=== PATIENT | female | born 1995 | race Hispanic/Latino ===

== ENCOUNTER 2018-10-14 18:09 | Emergency (ER) | payer SELFPAY ==
[2018-10-14] MEDS ORDERED: BUPIVACAINE 0.5% PF 10 ML VIAL ONE (19:40)
[2018-10-14] MEDS ORDERED: AMOX/K CLAV 875 MG TAB ONE (19:40)
[2018-10-14] MEDS ORDERED: TETANUS & DIPHTHERIA TOX,ADULT 0.5 ML VIAL ONE (19:41)
--- NOTE | 2018-10-14 19:46 | RAD REPORT ---
EXAM DESCRIPTION: RAD - Humerus Right - 10/14/2018 7:27 pm CLINICAL HISTORY: Right arm pain FINDINGS: No fracture is seen . Soft tissue laceration is noted. A radiopaque foreign body is not s een
--- NOTE | 2018-10-14 21:30 | EDPHYS ---
Physician Documentation [facility] Name: Nazia Ribeiro Age: 23 yrs Sex: Female : 1995 Arrival Date: 10/14/2018 Time: 18:11 Bed 16 Private MD: ED Physician Ruben Greer HPI: 10/14 18:42 This 23 yrs old Female presents to ER via Ambulatory with complaints of Dog jmm Bite. 18:42 by a dog, Onset: The symptoms/episode began/occurred acutely. This is a 23 year old jmm female with no chronic medical conditions that presents to the ED with complaints of right arm pain after a large dog bit her right arm. Patient states as she walked into the dogs home she was attacked. Denies other injury. Denies numbness to the arm. . Historical: - Allergies: 18:21 No Known Allergies; sg - Home Meds: 18:21 None [Active]; sg - PMHx: 18:21 None; sg - PSHx: 18:21 None; sg - Immunization history:: Adult Immunizations up to date, Last tetanus immunization: > 10 years ago. - Social history:: Smoking status: Patient/guardian denies using tobacco. - Ebola Screening: : Patient negative for fever greater than or equal to 101.5 degrees Fahrenheit, and additional compatible Ebola Virus Disease symptoms Patient denies exposure to infectious person Patient denies travel to an Ebola-affected area in the 21 days before illness onset No symptoms or risks identified at this time. ROS: 21:22 Constitutional: Negative for fever, chills, and weight loss, Cardiovascular: Negative jmm for chest pain, palpitations, and edema, Respiratory: Negative for shortness of breath, cough, wheezing, and pleuritic chest pain. 21:22 MS/extremity: Positive for injury or acute deformity, pain. 21:22 All other systems are negative. Exam: 21:22 Constitutional: This is a well developed, well nourished patient who is awake, alert, jmm and in no acute distress. Head/Face: atraumatic. Eyes: EOMI, no conjunctival erythema appreciated ENT: Moist Mucus Membranes Neck: Trachea midline, Supple Chest/axilla: Normal chest wall appearance and motion. Cardiovascular: Regular rate and rhythm. No edema appreciated Respiratory: Normal respirations, no respiratory distress appreciated Abdomen/GI: Non distended, soft 21:22 Musculoskeletal/extremity: FROM appreciated to the right elbow, compartments are soft, NVI. 21:22 Skin: 2 cm laceration noted to the right lateral humeral region, no active bleeding appreciated. 21:22 Neuro: Orientation: is normal, Mentation: is normal, Memory: is normal. 21:22 Psych: Behavior/mood is pleasant, cooperative. Vital Signs: 18:22 BP 136 / 73; Pulse 72; Resp 17; Temp 99.7; Pulse Ox 100% on R/A; Weight 86.18 kg (R); sg Height 5 ft. 6 in. (167.64 cm) (R); Pain 6/10; 19:30 BP 127 / 73; Pulse 75; Resp 17 S; Pulse Ox 100% on R/A; cc3 20:25 BP 128 / 77; Pulse 72; Resp 16 S; Pulse Ox 100% on R/A; cc3 21:35 BP 125 / 83; Pulse 73; Resp 17 S; Pulse Ox 99% on R/A; cc3 18:22 Body Mass Index 30.67 (86.18 kg, 167.64 cm) sg MDM: 18:42 Patient medically screened. [facility] 21:22 Data reviewed: vital signs, nurses notes. Counseling: I had a detailed discussion with hilary the patient and/or guardian regarding: the historical points, exam findings, and any diagnostic results supporting the discharge/admit diagnosis, radiology results, the need for outpatient follow up, to return to the emergency department if symptoms worsen or persist or if there are any questions or concerns that arise at home. ED course: The wound to the right arm was copiously irrigated. I discussed the risk of wound infection due to the depth of the wound along with the need for close follow up for wound care. Patient was given strict return precautions. Patient understood and agrees with the plan fo care. . 10/14 18:48 Order name: Humerus Right XRAY; Complete Time: 20:13 [facility] 10/14 20:45 Order name: Wound Care; Complete Time: 21:23 [facility] Administered Medications: 19:45 Drug: Augmentin 875 mg Route: PO; cc3 21:25 Follow up: Response: No adverse reaction cc3 19:46 Drug: Tetanus-Diphtheria Toxoid Adult 0.5 ml {Ecdis N Navigation Operator: [employer]. Exp: cc3 08/10/2020. Lot #: [id number]. } Route: IM; Site: left deltoid; 21:25 Follow up: Response: No adverse reaction cc3 20:10 Drug: Marcaine (0.5 %) 10 ml {Note: administered by RICK Correa.} Volume: 10 ml; Route: cc3 Infiltration; 21:25 Follow up: Response: No adverse reaction cc3 21:25 Drug: [place] 5 mg-325 mg 1 tabs Route: PO; cc3 22:00 Follow up: Response: No adverse reaction; Pain is decreased cc3 Disposition: : Co-signature as Attending Physician, Ruben Greer MD Available for consultation at [facility] all times . Disposition: 10/14/18 21:29 Discharged to Home. Impression: Dog Bite, Arm Laceration. - Condition is Stable. - Discharge Instructions: Animal Bite. - Prescriptions for Augmentin 875- 125 mg Oral Tablet - take 1 tablet by ORAL route every 12 hours for 10 days; 20 tablet. Ultracet 37.5- 325 mg Oral Tablet - take 1 tablet by ORAL route every 6 hours - for up to 5 days; do not exceed 8 tablets per day.; 12 tablet. - Medication Reconciliation Form, Thank You Letter, Antibiotic Education, Prescription Opioid Use form. - Follow up: Oscar Butler MD; When: 2 - 3 days; Reason: Recheck today's complaints, Continuance of care, Re-evaluation by your physician. Signatures: Dispatcher [employer] EDMS Randy Candelario RN RN sg Mickail, Joel, PA PA jmm Singer, Phillip, MD MD [facility] Pam Cortés cc3 Corrections: (The following items were deleted from the chart) 21:22 18:42 This is a 23 year old female . hilary richard 22:01 21:29 10/14/2018 21:29 Discharged to Home. Impression: Dog Bite; Arm Laceration. cc3 Condition is Stable. Forms are Medication Reconciliation Form, Thank You Letter, Antibiotic Education, Prescription Opioid Use. Follow up: Oscar Butler; When: 2 - 3 days; Reason: Recheck today's complaints, Continuance of care, Re-evaluation by your physician. hilary
--- NOTE | 2018-10-14 21:30 | ER ---
Nurse's Notes [facility] Name: Nazia Ribeiro Age: 23 yrs Sex: Female : 1995 Arrival Date: 10/14/2018 Time: 18:11 Bed 16 Private MD: Diagnosis: Dog Bite;Arm Laceration Presentation: 10/14 18:18 Presenting complaint: Patient states: I was walking into my significant others home, sg when his dog bit me in the right bicep and the right elbow. Transition of care: patient was not received from another setting of care. Onset of symptoms was October 14, 2018. Risk Assessment: Do you want to hurt yourself or someone else? Patient reports no desire to harm self or others. Initial Sepsis Screen: Does the patient meet any 2 criteria? No. Patient's initial sepsis screen is negative. Does the patient have a suspected source of infection? Yes: Skin breakdown/wound. Care prior to arrival: None. 18:18 Method Of Arrival: Ambulatory sg 18:18 Acuity: ELDA 4 sg Triage Assessment: 18:20 Bite description: bite sustained to right arm was sustained 30-60 minutes ago. by a rb1 dog, animal information: vaccination(s) is current. Historical: - Allergies: 18:21 No Known Allergies; sg - Home Meds: 18:21 None [Active]; sg - PMHx: 18:21 None; sg - PSHx: 18:21 None; sg - Immunization history:: Adult Immunizations up to date, Last tetanus immunization: > 10 years ago. - Social history:: Smoking status: Patient/guardian denies using tobacco. - Ebola Screening: : Patient negative for fever greater than or equal to 101.5 degrees Fahrenheit, and additional compatible Ebola Virus Disease symptoms Patient denies exposure to infectious person Patient denies travel to an Ebola-affected area in the 21 days before illness onset No symptoms or risks identified at this time. Screenin:20 Abuse screen: Denies threats or abuse. Nutritional screening: No deficits noted. rb1 Tuberculosis screening: No symptoms or risk factors identified. Fall Risk None identified. Assessment: 18:20 General: Appears in no apparent distress. comfortable, Behavior is calm, cooperative. rb1 Pain: Complains of pain in right arm Pain currently is 3 out of 10 on a pain scale. Quality of pain is described as stinging, Pain began 1730 today. Neuro: Level of Consciousness is awake, alert, obeys commands, Oriented to person, place, time, situation. Cardiovascular: Capillary refill < 3 seconds is brisk in right in bilateral fingers. Respiratory: Airway is patent Respiratory effort is even, unlabored, Respiratory pattern is regular, symmetrical. GI: No signs and/or symptoms were reported involving the gastrointestinal system. : No signs and/or symptoms were reported regarding the genitourinary system. Derm: Skin wound on right upper arm Skin is dry, Skin is pink, warm \T\ dry. Wound noted right upper arm. Musculoskeletal: Range of motion: intact in all extremities. 19:30 Reassessment: Patient appears in no apparent distress at this time. Patient and/or cc3 family updated on plan of care and expected duration. Pain level reassessed. Patient is alert, oriented x 3, equal unlabored respirations, skin warm/dry/pink. Received this female patient from morning shift RN Faith as a case of dog bite. No IV cannula in situ. 20:18 Reassessment: Patient appears in no apparent distress at this time. Patient and/or cc3 family updated on plan of care and expected duration. Pain level reassessed. Patient is alert, oriented x 3, equal unlabored respirations, skin warm/dry/pink. 21:20 Reassessment: Patient appears in no apparent distress at this time. Patient and/or cc3 family updated on plan of care and expected duration. Pain level reassessed. Patient is alert, oriented x 3, equal unlabored respirations, skin warm/dry/pink. 22:00 Reassessment: Patient appears in no apparent distress at this time. Patient and/or cc3 family updated on plan of care and expected duration. Pain level reassessed. Patient is alert, oriented x 3, equal unlabored respirations, skin warm/dry/pink. RICK Aden discharged home the patient with prescription given. No IV cannula in situ. Patient left ER vitally stable and ambulatory with her friend. Patient denies pain at this time. Patient states feeling better. Patient states symptoms have improved. Vital Signs: 18:22 BP 136 / 73; Pulse 72; Resp 17; Temp 99.7; Pulse Ox 100% on R/A; Weight 86.18 kg (R); sg Height 5 ft. 6 in. (167.64 cm) (R); Pain 6/10; 19:30 BP 127 / 73; Pulse 75; Resp 17 S; Pulse Ox 100% on R/A; cc3 20:25 BP 128 / 77; Pulse 72; Resp 16 S; Pulse Ox 100% on R/A; cc3 21:35 BP 125 / 83; Pulse 73; Resp 17 S; Pulse Ox 99% on R/A; cc3 18:22 Body Mass Index 30.67 (86.18 kg, 167.64 cm) ED Course: 18:11 Patient arrived in ED. as 18:17 Faith Brush, RN is Primary Nurse. rb1 18:18 Arm band placed on. sg 18:20 Triage completed. sg 18:20 Patient has correct armband on for positive identification. Bed in low position. Call rb1 light in reach. Side rails up X 1. Pulse ox on. NIBP on. 18:26 Sunny Aden PA is PHCP. [facility] 18:26 Ruben Greer MD is Attending Physician. [facility] 19:00 Report given to DAWN Orozco. rb1 19:27 Humerus Right XRAY In Process Unspecified. EDMS 21:28 Oscar Butler MD is Referral Physician. [facility] 22:00 No provider procedures requiring assistance completed. Patient did not have IV access cc3 during this emergency room visit. Administered Medications: 19:45 Drug: Augmentin 875 mg Route: PO; cc3 21:25 Follow up: Response: No adverse reaction cc3 19:46 Drug: Tetanus-Diphtheria Toxoid Adult 0.5 ml {Rn Unit Manager: [employer]. Exp: cc3 08/10/2020. Lot #: [id number]. } Route: IM; Site: left deltoid; 21:25 Follow up: Response: No adverse reaction cc3 20:10 Drug: Marcaine (0.5 %) 10 ml {Note: administered by RICK Correa.} Volume: 10 ml; Route: cc3 Infiltration; 21:25 Follow up: Response: No adverse reaction cc3 21:25 Drug: [place] 5 mg-325 mg 1 tabs Route: PO; cc3 22:00 Follow up: Response: No adverse reaction; Pain is decreased cc3 Outcome: 21:29 Discharge ordered by . [facility] 22:00 Discharged to home ambulatory, with friend. cc3 22:00 Condition: stable 22:00 Discharge instructions given to patient, friend, Instructed on discharge instructions, follow up and referral plans. medication usage, Demonstrated understanding of instructions, follow-up care, medications, Prescriptions given X 2. 22:01 Patient left the ED. cc3 Signatures: Dispatcher [employer] EDRandy Lugo RN RN sg Mickail, Joel, PA PA jmm Martinez, Amelia as Barber, Rebecca, RN RN Pam Staton cc3
[2018-10-14] MEDS ORDERED: HYDROCODONE/APAP 5/325 MG TAB ONE (21:39)
== END 2018-10-14 22:01 | disposition home or self-care (01) ==
LOC: ER 18:09
DX: S41.151A Open bite of right upper arm, initial encounter (principal); W54.0XXA Bitten by dog, initial encounter; Y92.009 Unspecified place in unspecified non-institutional (private) residence as the place of occurrence of the external cause; Z23 Encounter for immunization
CPT/HCPCS: 90471; 90714; 99284

== ENCOUNTER 2019-02-27 11:34 | Inpatient (IN) | payer BC ==
[2019-02-27] MEDS ORDERED: DIAZEPAM 10 MG/2 ML INJ SYRINGE ONE (12:13)
[2019-02-27] MEDS ORDERED: NA CHLORIDE 0.9% 1,000 ML ONE (12:13)
--- NOTE | 2019-02-27 13:31 | RAD REPORT ---
EXAM DESCRIPTION: RAD - Chest Single View - 02/27/2019 1:25 pm CLINICAL HISTORY: CHEST PAIN Chest pain. COMPARISON: No comparisons FINDINGS: Portable technique limits examination quality. The lungs are grossly clear. The heart is normal in size. No displaced fractures. IMPRESSION: No acute intrathoracic process suspected.
--- NOTE | 2019-02-27 13:37 | RAD REPORT ---
EXAM DESCRIPTION: US - Extrem Venous W Compress Mil - 02/27/2019 12:36 pm CLINICAL HISTORY: SOB Bilateral leg edema and swelling. COMPARISON: No comparisons TECHNIQUE: Real-time sonographic interrogation of the left and right lower extremity deep venous sys tems was performed. FINDINGS: Normal compressibility, flow augmentation, phasic flow and spontaneous flow is identified in both the left and right lower extremity deep venous systems. IMPRESSION: No sonographic evidence of left or right lower extremity deep venous thrombosis.
--- NOTE | 2019-02-27 13:37 | RAD REPORT ---
EXAM DESCRIPTION: US - Abdomen Exam Limited - 02/27/2019 12:36 pm CLINICAL HISTORY: chest pain COMPARISON: No comparisons FINDINGS: The gallbladder demonstrates no gallstones. No pericholecystic fluid or gallbladder wall t hickening. The common bile duct is normal measuring 2 mm. The liver demonstrates no findings of intrahepatic biliary dilatation. IMPRESSION: Unremarkable examination.
[2019-02-27 13:39] LABS: Albumin 2.4 g/dL (3.4-5.0); Bilirubin Direct 0.2 mg/dL (0-0.2); Bilirubin Total 0.7 mg/dL (0.2-1.0); Potassium 4.3 mmol/L (3.5-5.1); Protein, Total 6.5 g/dL (6.4-8.2)
[2019-02-27 13:43] LABS: Urine Bacteria 20-50 /HPF (<20); Urine RBC >50 /HPF (NONE SEEN)
[2019-02-27 13:44] LABS: Absolute Lymphocytes (CBC) 1.2 K/uL (0.7-4.9); Basophils % 0.4 % (0-1.3); Hematocrit 29.5 % (36.0-45.0); Lymphocytes % 37.2 % (15.3-44.8); MPV 10.8 fL (7.6-11.3); RBC Red Blood Cell Count 3.38 M/uL (3.86-4.86)
[2019-02-27 13:44] LABS: Urine Culture Reflex Order REFLEXED
[2019-02-27 13:45] LABS: Urine Mucus SLIGHT /HPF (NONE SEEN); Urine Yeast PRESENT (NONE SEEN)
--- NOTE | 2019-02-27 14:55 | RAD REPORT ---
EXAM DESCRIPTION: CTAbdomen Pelvis W Contrast - 02/27/2019 2:34 pm CLINICAL HISTORY: Abdominal pain. ABD PAIN COMPARISON: Chest For Pe Angio dated 02/27/2019; Abdomen Exam Limited dated 02/27/2019; Extrem Venous W Compress Mil dated 02/27/2019 TECHNIQUE: Biphasic CT imaging of the abdomen and pelvis was performed with 100 ml non-ionic IV cont rast. All CT scans are performed using dose optimization technique as appropriate and may include automated exposure control or mA/KV adjustment according to patient size. FINDINGS: The lung bases are clear. The liver, spleen, pancreas, adrenal glands and kidneys are within normal limits. No bowel obstruction, free air, free fluid or abscess. The appendix is normal. No evidence of signi ficant lymphadenopathy. No suspicious bony findings. Tiny air bubble in the urinary bladder seen. IMPRESSION: Tiny air bubble noted in the urinary bladder. Consider urinalysis correlation for the po ssibility of urinary tract infection.
--- NOTE | 2019-02-27 14:56 | RAD REPORT ---
EXAM DESCRIPTION: CT - Chest For Pe Angio - 02/27/2019 2:35 pm CLINICAL HISTORY: Chest pain. PE COMPARISON: No comparisons TECHNIQUE: CT angiogram of the pulmonary arteries was performed with MIP. All CT scans are performed using dose optimization technique as appropriate and may include automated exposure control or mA/KV adjustment according to patient size. FINDINGS: No evidence of pulmonary thromboembolism. No acute aortic finding demonstrated. Mild dependent pulmonary edema suspected. No focal infiltrate. No significant pericardial or pleural fluid. Mildly prominent axillary lymph nodes bilaterally. No concerning bony finding. IMPRESSION: No evidence of pulmonary thromboembolism.
[2019-02-27] MEDS ORDERED: FENTANYL CITR 100 MCG/2 ML ONE (15:37)
--- NOTE | 2019-02-27 16:07 | ER ---
Nurse's Notes [facility] Name: Nazia Ribeiro Age: 23 yrs Sex: Female : 1995 Arrival Date: 02/27/2019 Time: 11:35 Bed 6 Private MD: Gina Vance C Diagnosis: Nephrotic syndrome;Pancytopenia;Chest pain, unspecified Presentation: 02/27 11:37 Presenting complaint: Mid back pain that wraps around to center of chest and SOB x 2 hb days. Transition of care: patient was not received from another setting of care. Onset of symptoms was February 26, 2019. Risk Assessment: Do you want to hurt yourself or someone else? Patient reports no desire to harm self or others. Initial Sepsis Screen: Does the patient meet any 2 criteria? No. Patient's initial sepsis screen is negative. Does the patient have a suspected source of infection? No. Patient's initial sepsis screen is negative. Care prior to arrival: None. 11:37 Method Of Arrival: Ambulatory hb 11:37 Acuity: ELDA 3 hb WATCH LEADER: 11:38 LMP 02/14/2019 hb Historical: - Allergies: 11:40 No Known Allergies; hb - Home Meds: 11:42 pantoprazole 40 mg oral TbEC 1 tab once daily [Active]; hb - PMHx: 11:40 Gastritis; hb - PSHx: 11:40 None; hb - Immunization history:: Adult Immunizations up to date. - Social history:: Smoking status: Patient/guardian denies using tobacco. - Ebola Screening: : No symptoms or risks identified at this time. Screenin:18 Abuse screen: Denies threats or abuse. Denies injuries from another. Nutritional ph screening: No deficits noted. Tuberculosis screening: No symptoms or risk factors identified. Fall Risk None identified. Assessment: 12:45 General: Appears in no apparent distress. uncomfortable, well groomed, Behavior is ph calm, cooperative, appropriate for age. Pain: Complains of pain in left subscapular area Pain radiates to left lateral posterior chest and left lateral anterior chest Pain began 1 day ago. Neuro: Level of Consciousness is awake, alert, obeys commands, Oriented to person, place, time, situation. Cardiovascular: Reports chest pain, shortness of breath, Capillary refill < 3 seconds in bilateral fingers Patient's skin is warm and dry. Respiratory: Reports shortness of breath at rest Airway is patent Respiratory effort is even, unlabored, Respiratory pattern is regular, symmetrical. GI: No signs and/or symptoms were reported involving the gastrointestinal system. Derm: Skin is intact, Skin is pink, warm \T\ dry. Musculoskeletal: Circulation, motion, and sensation intact. Range of motion: intact in all extremities, Swelling present in right hand and left hand. 14:00 Reassessment: Patient appears in no apparent distress at this time. Patient and/or ph family updated on plan of care and expected duration. Pain level reassessed. Patient is alert, oriented x 3, equal unlabored respirations, skin warm/dry/pink. 15:00 Reassessment: Patient appears in no apparent distress at this time. Patient and/or ph family updated on plan of care and expected duration. Pain level reassessed. Patient is alert, oriented x 3, equal unlabored respirations, skin warm/dry/pink. 16:01 Reassessment: Patient and/or family updated on plan of care and expected duration. Pain iw level reassessed. pt states back pain has improved slightly after pain med, now 6/10, down from 9/10, Nydia, CAR COUPLER notified, verbal order for 2nd dose of fentanyl, given now. US tech at bedside, family at bedside. 17:00 Reassessment: Patient appears in no apparent distress at this time. Patient and/or ph family updated on plan of care and expected duration. Pain level reassessed. Patient is alert, oriented x 3, equal unlabored respirations, skin warm/dry/pink. 18:00 Reassessment: Patient appears in no apparent distress at this time. Patient and/or ph family updated on plan of care and expected duration. Pain level reassessed. Patient is alert, oriented x 3, equal unlabored respirations, skin warm/dry/pink. 19:14 Reassessment: Patient appears in no apparent distress at this time. Patient and/or ph family updated on plan of care and expected duration. Pain level reassessed. Patient is alert, oriented x 3, equal unlabored respirations, skin warm/dry/pink. Vital Signs: 11:38 BP 170 / 123; Pulse 87; Resp 89; Temp 97.3; Pulse Ox 100% on R/A; Weight 86.18 kg; hb Height 5 ft. 5 in. (165.10 cm); Pain 9/10; 13:17 BP 165 / 92; Pulse 92; Resp 18; Pulse Ox 100% on R/A; ph 14:30 BP 186 / 106; Pulse 81; Resp 18; Pulse Ox 98% on R/A; mh5 15:31 BP 194 / 111; Pulse 81; Resp 16; Temp 97.6(TE); Pulse Ox 100% on R/A; mh5 16:00 BP 179 / 122; Pulse 76; Resp 16; Pulse Ox 98% on R/A; Pain 6/10; iw 16:35 BP 212 / 110 RA Sitting (man/); Pulse 74; Resp 18; Pulse Ox 98% on R/A; ph 17:30 BP 165 / 97; Pulse 75; Resp 18; Pulse Ox 99% on R/A; ph 18:21 BP 177 / 119; Pulse 75; Resp 18; Pulse Ox 100% on R/A; ph 19:15 BP 169 / 107; Pulse 80; Resp 20; Pulse Ox 98% on R/A; lp1 19:50 BP 167 / 105; Pulse 86; Resp 16; Temp 98.3(O); Pulse Ox 99% on R/A; lp1 11:38 Body Mass Index 31.62 (86.18 kg, 165.10 cm) hb ED Course: 11:35 Patient arrived in ED. as 11:35 Gina Vance MD is Private Physician. as 11:38 Triage completed. hb 11:38 Arm band placed on. hb 11:43 [facility]C [facility] snw 11:43 Adolfo Main MD is Attending Physician. snw 11:46 Patient has correct armband on for positive identification. Placed in gown. Bed in low mh5 position. Call light in reach. Side rails up X 1. Adult w/ patient. Warm blanket given. nuclear monitoring technician on. Pulse ox on. NIBP on. 11:50 Nereyda Lin, RN is Primary Nurse. ph 12:39 US Extremity Venous W Compression Mil In Process Unspecified. EDMS 12:39 US Abdomen Limited In Process Unspecified. EDMS 13:17 Initial lab(s) drawn, by me, sent to lab. Inserted saline lock: 20 gauge in right ph antecubital area, using aseptic technique. Blood collected. Patient maintains SpO2 saturation greater than 95% on room air. 13:29 Chest Single View In Process Unspecified. EDMS 14:05 Radiology exam delayed due to test not completed at this time. mw3 14:37 CT Chest For PE Angio In Process Unspecified. EDMS 14:42 CT Abd/Pelvis - IV Contrast Only In Process Unspecified. EDMS 15:26 Lab(s) recollected, by me, sent to lab. mh5 15:48 [place] Screen Profile Sent. mh5 15:48 Hepatitis Panel Sent. mh5 15:48 HIV (1 Sent. mh5 15:48 CBC Smear Scan Sent. mh5 16:05 Gina Vance MD is Hospitalizing Provider. snw 16:15 Ultrasound completed. hr 16:16 US Rp Exam Complete In Process Unspecified. EDMS 19:22 No provider procedures requiring assistance completed. Patient admitted, IV remains in lp1 place. Administered Medications: 13:10 Drug: NS 0.9% 1000 ml Route: IV; Rate: 125 ml/hr; Site: right antecubital; ph 19:13 Follow up: Response: No adverse reaction; IV Status: Completed infusion ph 13:15 Drug: Valium 5 mg Route: IVP; Site: right antecubital; ph 19:13 Follow up: Response: No adverse reaction ph 15:44 Drug: fentaNYL (PF) 25 mcg Route: IVP; Site: right antecubital; iw 16:15 Follow up: Response: No adverse reaction; Pain is decreased; RASS: Drowsy (-1) ph 16:00 Drug: fentaNYL (PF) 25 mcg Route: IVP; Site: right antecubital; iw 16:30 Follow up: Response: No adverse reaction; Pain is decreased; RASS: Alert and Calm (0) ph 16:46 Drug: Metoprolol 25 mg Route: PO; ph 19:11 Follow up: Response: No adverse reaction ph 16:46 Drug: Dilaudid 1 mg Route: IVP; Site: right antecubital; ph 17:15 Follow up: Response: No adverse reaction; Pain is decreased; RASS: Drowsy (-1) ph 17:50 Drug: Phenergan 12.5 mg Route: IVP; Site: right antecubital; jl7 19:10 Follow up: Response: No adverse reaction; Nausea is decreased ph 18:16 Drug: amLODIPine 5 mg Route: PO; iw 19:11 Follow up: Response: No adverse reaction ph 18:16 Drug: Benadryl 25 mg Route: PO; iw 19:11 Follow up: Response: No adverse reaction ph Outcome: 16:06 Decision to Hospitalize by Provider. snw 19:23 Condition: stable lp1 19:23 Instructed on the need for admit. 20:00 Admitted to Med/surg via wheelchair, room 207, with chart, Report called to hansel Rollins RN 20:15 Patient left the ED. hansel Signatures: Dispatcher [employer] EDMS Nydia Jordan, NANOSCIENCE TECHNICIAN-C NANOSCIENCE TECHNICIAN-Csnw Rosaura Alfaro Amelia as Williams, Irene, DAWN SEYMOUR Arleen Kenny RN RN lp1 Nereyda Lin RN RN ph Baxter, Heather, RN RN hb Martinez, Maria [facility] Ant Ryan RN RN 7 Vanesa Cotto 3
--- NOTE | 2019-02-27 16:08 | EDPHYS ---
Physician Documentation [facility] Name: Nazia Ribeiro Age: 23 yrs Sex: Female : 1995 Arrival Date: 02/27/2019 Time: 11:35 Bed 6 Private MD: Gina Vance C ED Physician Adolfo Main HPI: 02/27 12:17 This 23 yrs old Female presents to ER via Ambulatory with complaints of Chest snw Pain, Shortness Of Breath. 12:17 The patient has shortness of breath at rest. Onset: The symptoms/episode began/occurred snw suddenly, 2 day(s) ago, and became worse and became persistent. Duration: The symptoms are continuous. The patient's shortness of breath is aggravated by light activity, supine position. Associated signs and symptoms: Pertinent positives: chest pain, swelling. Severity of symptoms: At their worst the symptoms were moderate severe in the emergency department the symptoms are unchanged. The patient has not experienced similar symptoms in the past. pt took 5 hour plane ride for a [employer] Butt lift. She was declined surgery second to anemia, leukopenia. 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 - Social history:: Smoking status: Patient/guardian denies using tobacco. - Ebola Screening: : No symptoms or risks identified at this time. ROS: 12:17 Eyes: Negative for injury, pain, redness, and discharge, ENT: Negative for injury, snw pain, and discharge, Neck: Negative for injury, pain, and swelling. 12:17 Abdomen/GI: Negative for abdominal pain, nausea, vomiting, diarrhea, and constipation, Back: Negative for injury and pain, : Negative for injury, bleeding, discharge, and swelling. 12:17 Skin: Negative for injury, rash, and discoloration, Neuro: Negative for headache, weakness, numbness, tingling, and seizure, Psych: Negative for depression, anxiety, suicide ideation, homicidal ideation, and hallucinations. 12:17 Constitutional: Positive for body aches, fatigue, malaise. 12:17 Cardiovascular: Positive for palpitations. 12:17 Respiratory: Positive for shortness of breath. 12:17 MS/extremity: Positive for swelling. Exam: 12:17 Head/Face: Normocephalic, atraumatic. Eyes: Pupils equal round and reactive to light, snw extra-ocular motions intact. Lids and lashes normal. Conjunctiva and sclera are non-icteric and not injected. Cornea within normal limits. Periorbital areas with no swelling, redness, or edema. ENT: Nares patent. No nasal discharge, no septal abnormalities noted. Tympanic membranes are normal and external auditory canals are clear. Oropharynx with no redness, swelling, or masses, exudates, or evidence of obstruction, uvula midline. Mucous membranes moist. Neck: Trachea midline, no thyromegaly or masses palpated, and no cervical lymphadenopathy. Supple, full range of motion without nuchal rigidity, or vertebral point tenderness. No Meningismus. Chest/axilla: Normal chest wall appearance and motion. Nontender with no deformity. No lesions are appreciated. 12:17 Abdomen/GI: Soft, non-tender, with normal bowel sounds. No distension or tympany. No guarding or rebound. No evidence of tenderness throughout. Back: No spinal tenderness. No costovertebral tenderness. Full range of motion. Skin: Warm, dry with normal turgor. Normal color with no rashes, no lesions, and no evidence of cellulitis. MS/ Extremity: Pulses equal, no cyanosis. Neurovascular intact. Full, normal range of motion. Neuro: Awake and alert, GCS 15, oriented to person, place, time, and situation. Cranial nerves II-XII grossly intact. Motor strength 5/5 in all extremities. Sensory grossly intact. Cerebellar exam normal. Normal gait. 12:17 Constitutional: The patient appears alert, awake, anxious, in obvious distress, uncomfortable. 12:17 Cardiovascular: Rate: tachycardic, Rhythm: regular, Pulses: no pulse deficits are appreciated. 12:17 Respiratory: the patient does not display signs of respiratory distress, Respirations: shallow respirations, splinting, tachypnea, Breath sounds: are clear throughout. 12:17 Psych: Behavior/mood is anxious, Affect is animated. Vital Signs: 11:38 BP 170 / 123; Pulse 87; Resp 89; Temp 97.3; Pulse Ox 100% on R/A; Weight 86.18 kg; hb Height 5 ft. 5 in. (165.10 cm); Pain 9/10; 13:17 BP 165 / 92; Pulse 92; Resp 18; Pulse Ox 100% on R/A; ph 14:30 BP 186 / 106; Pulse 81; Resp 18; Pulse Ox 98% on R/A; mh5 15:31 BP 194 / 111; Pulse 81; Resp 16; Temp 97.6(TE); Pulse Ox 100% on R/A; mh5 16:00 BP 179 / 122; Pulse 76; Resp 16; Pulse Ox 98% on R/A; Pain 6/10; iw 16:35 BP 212 / 110 RA Sitting (man/); Pulse 74; Resp 18; Pulse Ox 98% on R/A; ph 17:30 BP 165 / 97; Pulse 75; Resp 18; Pulse Ox 99% on R/A; ph 18:21 BP 177 / 119; Pulse 75; Resp 18; Pulse Ox 100% on R/A; ph 19:15 BP 169 / 107; Pulse 80; Resp 20; Pulse Ox 98% on R/A; lp1 19:50 BP 167 / 105; Pulse 86; Resp 16; Temp 98.3(O); Pulse Ox 99% on R/A; lp1 11:38 Body Mass Index 31.62 (86.18 kg, 165.10 cm) hb MDM: 11:52 Patient medically screened. [facility] 14:16 Data reviewed: vital signs, nurses notes. Data interpreted: Pulse oximetry: on room air snw is 100 %. Interpretation: normal. Counseling: I had a detailed discussion with the patient and/or guardian regarding: the historical points, exam findings, and any diagnostic results supporting the discharge/admit diagnosis, the presence of at least one elevated blood pressure reading (>120/80) during this emergency department visit, lab results, radiology results. Physician consultation: Gina Vance MD was called at 14:16, was contacted at 14:17, regarding consult, patient's condition, would like further tests performed, monospot. 15:30 Physician consultation: Aly Boykin MD was called at 15:30, was contacted at 15:30, snw regarding renal ultrasound, multiple labs orders. 16:01 Physician consultation: Gina Vance MD was called at 15:42, would like consultation with Dr. kurt Faustin, Cardiology, , would like further tests performed, Echo. 16:03 Physician consultation: Marlyn Jaime MD was called at 16:03, was contacted at w 16:03, regarding consult, message left. 02/27 11:44 Order name: Basic Metabolic Panel; Complete [facility]: 13:45 [facility] 02/27 11:44 Order name: CBC with Diff; Complete Time: 16:35 [facility] 02/27 11:44 Order name: Hepatic Function; Complete Time: 13:45 [facility] 02/27 11:44 Order name: Lipase; Complete Time: 13:45 [facility] 02/27 11:44 Order name: DD; Complete Time: 13:57 [facility] 02/27 11:44 Order name: Urine Microscopic Only; Complete Time: 13:57 [facility] 02/27 11:57 Order name: TSH; Complete Time: 13:57 [facility] 02/27 11:57 Order name: TS; Complete Time: 14:44 [facility] 02/27 11:57 Order name: Urine For Protein, Random; Complete Time: 13:45 [facility] 02/27 13:23 Order name: Urine Dipstick--Ancillary (enter results) 02/27 13:53 Order name: Urine Culture [facility] 02/27 14:07 Order name: CBC Smear Scan; Complete Time: 16:35 [facility] 02/27 14:14 Order name: Test, Urine; Complete Time: 14:17 [facility] 02/27 14:16 Order name: [place] Screen Profile; Complete Time: 16:[facility] 02/27 14:33 Order name: Hepatitis Panel [facility] 02/27 14:34 Order name: HIV (1; Complete Time: 16:37 [facility] 02/27 15:48 Order name: ABO/RH no charge; Complete Time: 15:52 [facility] 02/27 15:52 Order name: SHARON IFA Screen w/Reflex [facility] 02/27 15:52 Order name: Anti-Double Strand DNA Antibod [facility] 02/27 15:52 Order name: Complement C3 [facility] 02/27 15:52 Order name: Complement C4 [facility] 02/27 15:55 Order name: Hepatitis B Surface Antibody [facility] 02/27 15:55 Order name: Hep B Core Ab, Tot/reflex IgM [facility] 02/27 15:55 Order name: Miscellaneous Test Lab [facility] 02/27 17:08 Order name: Basic Metabolic Panel [facility] 02/27 17:08 Order name: Basic Metabolic Panel [facility] 02/27 17:08 Order name: CBC with Automated Diff [facility] 02/27 17:08 Order name: CBC with Automated Diff [facility] 02/27 17:09 Order name: NT PRO-BNP [facility] 02/27 11:44 Order name: IV Saline Lock; Complete Time: 13:20 snw 02/27 11:44 Order name: Labs collected and sent; Complete Time: 13:20 snw 02/27 11:44 Order name: Urine Test (obtain specimen); Complete Time: 12:06 snw 02/27 11:44 Order name: Urine Dipstick-Ancillary (obtain specimen); Complete Time: 12:06 snw 02/27 11:57 Order name: US Extremity Venous W Compression Mil; Complete Time: 13:45 snw 02/27 11:57 Order name: US Abdomen Limited; Complete Time: 13:45 snw 02/27 12:51 Order name: Recheck Vital Signs; Complete Time: 13:20 snw 02/27 13:29 Order name: Chest Single View; Complete Time: 13:45 [facility] 02/27 13:59 Order name: CT Chest For PE Angio; Complete Time: 15:05 snw 02/27 13:59 Order name: CT Abd/Pelvis - IV Contrast Only; Complete Time: 15:05 snw 02/27 13:59 Order name: Labs - recollect needed; Complete Time: 15:37 bd 02/27 15:41 Order name: US Rp Exam Complete; Complete Time: 17:11 snw 02/27 15:56 Order name: Echo with Doppler [facility] 02/27 16:04 Order name: Misc. Order: Manual bp prior to metoprolol; Complete Time: 16:39 snw 02/27 17:08 Order name: CONS Physician Consult [facility] 02/27 17:09 Order name: NT PRO-BNP [facility] 02/27 17:09 Order name: Troponin I [facility] 02/27 17:09 Order name: Troponin I [facility] 02/27 17:09 Order name: Troponin I [facility] Administered Medications: 13:10 Drug: NS 0.9% 1000 ml Route: IV; Rate: 125 ml/hr; Site: right antecubital; ph 19:13 Follow up: Response: No adverse reaction; IV Status: Completed infusion ph 13:15 Drug: Valium 5 mg Route: IVP; Site: right antecubital; ph 19:13 Follow up: Response: No adverse reaction ph 15:44 Drug: fentaNYL (PF) 25 mcg Route: IVP; Site: right antecubital; iw 16:15 Follow up: Response: No adverse reaction; Pain is decreased; RASS: Drowsy (-1) ph 16:00 Drug: fentaNYL (PF) 25 mcg Route: IVP; Site: right antecubital; iw 16:30 Follow up: Response: No adverse reaction; Pain is decreased; RASS: Alert and Calm (0) ph 16:46 Drug: Metoprolol 25 mg Route: PO; ph 19:11 Follow up: Response: No adverse reaction ph 16:46 Drug: Dilaudid 1 mg Route: IVP; Site: right antecubital; ph 17:15 Follow up: Response: No adverse reaction; Pain is decreased; RASS: Drowsy (-1) ph 17:50 Drug: Phenergan 12.5 mg Route: IVP; Site: right antecubital; jl7 19:10 Follow up: Response: No adverse reaction; Nausea is decreased ph 18:16 Drug: amLODIPine 5 mg Route: PO; iw 19:11 Follow up: Response: No adverse reaction ph 18:16 Drug: Benadryl 25 mg Route: PO; iw 19:11 Follow up: Response: No adverse reaction ph Disposition: 02/28 06:36 Co-signature as Attending Physician, Adolfo Main MD I agree with the assessment and priyanka plan of care. Disposition: 02/27/19 16:06 Hospitalization ordered by Gina Vance for Inpatient Admission. Preliminary diagnosis are Nephrotic syndrome, Pancytopenia, Chest pain, unspecified. - Bed requested for Telemetry/MedSurg (Inpatient). - Status is Inpatient Admission. lp1 - Condition is Fair. - Problem is new. - Symptoms have worsened. UTI on Admission? No Signatures: Dispatcher [employer] EDMS Radha Rivas Corey, MD MD cha Therrien, Shelly, HEATING REPAIR TECHNICIAN-C HEATING REPAIR TECHNICIAN-Csnw Jessica Pool, RN RN Arleen Kenny, RN RN lp1 Nereyda Lin, RN RN Larissa Braxton, RN RN Ant Ryan, RN RN jl7 Corrections: (The following items were deleted from the chart) 02/27 13:28 11:46 Chest Pa And Lat (2 Views)+[email or web address] ordered. [facility] 15:55 15:52 Hepatitis B Core IgM Antibody ordered. [facility] 18:24 16:06 Hospitalization Ordered by A Rajiv RILEY for Inpatient Admission. Preliminary bd diagnosis is Nephrotic syndrome; Pancytopenia; Chest pain, unspecified. Bed requested for Telemetry/MedSurg (Inpatient). Status is Inpatient Admission. Condition is Fair. Problem is new. Symptoms have worsened. UTI on Admission? No. snw 20:15 18:24 02/27/2019 16:06 Hospitalization Ordered by A Rajiv RILEY for Inpatient Admission. lp1 Preliminary diagnosis is Nephrotic syndrome; Pancytopenia; Chest pain, unspecified. Bed requested for Telemetry/MedSurg (Inpatient). Status is Inpatient Admission. Condition is Fair. Problem is new. Symptoms have worsened. UTI on Admission? No. bd
[2019-02-27 16:29] LABS: Platelet Estimate DECR
[2019-02-27 16:30] LABS: Blood Morphology Comment NOT SEEN (NOT SEEN); Urine White Blood Cell Casts OK
[2019-02-27] MEDS ORDERED: HYDROMORPHONE HCL 1 MG/ML INJ ONE (16:39)
[2019-02-27] MEDS ORDERED: METOPROLOL TAR 25 MG TAB ONE (16:39)
--- NOTE | 2019-02-27 16:39 | RAD REPORT ---
EXAM DESCRIPTION: US - Renal Ultrasound-Complete - 02/27/2019 4:17 pm CLINICAL HISTORY: .nephrotic syndrome COMPARISON: None. FINDINGS: The right kidney measures 12 cm with a normal echotexture. The left kidney measures 11 cm with a normal echotexture. Hydronephrosis is not seen. No gross abnormality of the bladder IMPRESSION: Unremarkable renal ultrasound.
[2019-02-27] MEDS ORDERED: MORPHINE 4 MG/ML SYR IV PRN (17:02)
[2019-02-27] MEDS ORDERED: PROMETHAZINE 25 MG/ML VIAL ONE (17:52)
[2019-02-27] MEDS ORDERED: METOPROLOL TAR 25 MG TAB PO SCH (18:00)
[2019-02-27] MEDS ORDERED: AMLODIPINE 5 MG TAB ONE (18:13)
[2019-02-27] MEDS ORDERED: DIPHENHYDRAMINE 25 MG TAB/CAP ONE (18:13)
[2019-02-27 20:38] LABS: Urine Blood 3+ (NEG); Urine Glucose NEGATIVE (NEG); Urine Protein 3+ (NEG); Urine pH 6.5 (5.0-7.0)
[2019-02-27 20:40] VITALS: BMI 31.8
[2019-02-27] MEDS: METOPROLOL TAR 25 MG TAB PO SCH (21:14)
[2019-02-27] MEDS: NA CHLORIDE 0.9% 1,000 ML IV SCH (21:15)
[2019-02-27] MEDS ORDERED: AMLODIPINE 5 MG TAB PO ONE (22:13)
[2019-02-28 02:46] LABS: Rheumatoid Factor POS (NEG)
[2019-02-28 02:47] LABS: Rheumatoid Factor Titer 1:4 (32 RF IU/mL)
--- NOTE | 2019-02-28 04:42 | HP ---
Date of Admission: 02/27/2019 Chief Complaint: Chest pain and shortness of breath. History Of Present Illness: This is a 23-year-old female patient who just started to see me recently last month and at that time going to have " [place] butt lift" surgery in [facility]. At that time, she informed me that she was having some chest tightness and shortness of breath and palpi tation type of feeling. When I evaluated at office, I informed her that she should not undergo any s urgery until we get further workup done including cardiac workup and she did not agree with that [place] mmendation, so she did go to [facility]. She went to see the physician who did some preop bl ood work and her CBC showed abnormality in low white count, low hemoglobin, low platelets and physici an advised her not to do surgery, so she did not have any cosmetic surgery. After staying there for few days, she came back and she came to see me last week, and at that time, we talked about all her c omplaints and we started referral process to see director field services and got some outpatient lab work done, and patient actually was going to see me today at office for followup and to discuss lab results and further plan of treatment. Her blood work has shown pancytopenia and some proteinuria. Meanwhile, s he ends up coming to emergency room today instead of coming to office, as she was having lot more neeta st pain last night, describing her pain as in the center of her chest between the anterior and director digital sales ior chest wall. It is intermittent. No aggravating or relieving factor. No precipitating factor. She has some leg swelling, some shortness of breath. Denies any fever or chills. After she was eval uated in the emergency room, multiple testing done and the patient was admitted to the hospital with Nephrology and Hematology consult. I saw her in the emergency room. Her blood pressure has been ext remely elevated in the ER. She received 1 dose of morphine for pain and 1 dose of metoprolol 25 mg. Metoprolol was given to her about an hour and a half before I arrived to see her in the ER and her b lood pressure was still elevated when I saw her around 180 to 190 systolic, 115 diastolic with heart rate around 80, so amlodipine 5 mg p.o. x1 dose was ordered to be given in emergency room after I saw her. I also ordered Benadryl 25 mg p.o. to help her with itching which is likely due to morphine. I have discontinued her morphine. Allergies: NO KNOWN ALLERGIES. Medications: She takes pantoprazole 40 mg p.o. daily. Review of Systems: Cardiovascular: As mentioned above. Respiratory: As mentioned above. Dermatology: As mentioned above. All other systems reviewed and negative. Past Medical History: Significant for gastroesophageal reflux disease. Past Surgical History: Negative. Family History: Father has heart disease. Mother, diabetes. Social History: Negative for smoking and alcohol use. Physical Examination: Vital Signs: When she first came into emergency room, blood pressure 170/123, pulse 87, respiratory rate 18, oxygen saturation 100%, temperature 97.3. Height 5 feet 10 inches, weight 190 pounds. General: Awake, alert, oriented, not in distress. HEENT: Head atraumatic, normocephalic. Conjunctivae nonerythematous. Sclerae white. Mouth, no thru sh or edema noted. Ears/Nose, no mass, lesion, discharge noted. Neck: Supple. No JVD, lymph nodes, bruit, thyromegaly noted. Lungs: Bilateral good equal air entry. Clear to auscultation. No rhonchi. No rales. Heart: Normal heart sounds, no murmur or gallop. Abdomen: Soft, bowel sounds normal. No guarding, rigidity, tenderness, mass, hepatosplenomegaly, di stention, or bruit noted. Extremities: Trace leg edema. Skin: No rash, ulcer, cellulitis. Lymphatics: No lymph node enlargement in neck, supraclavicular, infraclavicular region. Neuro: No focal neurological deficit. Chest: Unremarkable. External Genitalia: Deferred. Rectal: Deferred. Laboratory Data: White count 3.3, hemoglobin 10.7, platelets 80. Sodium 143, potassium 4.3, chlorid e 114, bicarb 20, BUN 22, creatinine 1.15, glucose 89. Liver function test unremarkable. TSH 3.3. Troponin, result pending. D-dimer 6661. Urinalysis, urine protein 1635, urine wbc 10 to 20, and myriam teria 20 to 50, rbc more than 50. HIV negative. [place] screen negative. Right upper quadrant abdomin al ultrasound unremarkable. Renal ultrasound unremarkable. Chest x-ray, no acute intrathoracic benitez ges. CAT scan of the chest per PE protocol, no evidence of pulmonary embolism. Venous Doppler of le g, no evidence of DVT. CAT scan of abdomen, no acute intraabdominal finding. Has tiny air bubble no jessica in the urinary bladder. Impression: 1.Acute glomerulonephritis. 2.Proteinuria secondary to above. 3.Pancytopenia. 4.Hypertension. 5.Gastroesophageal reflux disease. Plan: Admit patient to hospital for further evaluation and management of this problem. Patient is a ppropriate for inpatient and is expected to spend 2 midnights in hospital. She received 1 dose of me toprolol. Blood pressure is still elevated and I have ordered 1 dose of amlodipine [address] art metoprolol 25 mg b.i.d. starting this evening. Consult Cardiology. Echo with Doppler was tyrone d. We will also consult Nephrology and Hematology service. We need to rule out any possibility of v iral myocarditis, lupus, etc. Details and plan of treatment discussed with the patient. I will see her tomorrow for followup. COCO/MODL Voice ID: [id number]
[2019-02-28 05:54] LABS: Absolute Lymphocytes (CBC) 0.9 K/uL (0.7-4.9); Basophils % 0.3 % (0-1.3); Hematocrit 24.8 % (36.0-45.0); Lymphocytes % 24.9 % (15.3-44.8); MPV 10.7 fL (7.6-11.3); RBC Red Blood Cell Count 2.86 M/uL (3.86-4.86)
[2019-02-28] MEDS: HYDROCODONE/APAP 5/325 MG TAB PO PRN ×4 (05:54→20:51)
[2019-02-28 06:16] LABS: Potassium 4.1 mmol/L (3.5-5.1)
[2019-02-28] MEDS: NA CHLORIDE 0.9% 1,000 ML IV SCH ×3 (07:20→20:40)
[2019-02-28] MEDS: METOPROLOL TAR 25 MG TAB PO SCH ×2 (08:54→20:51)
[2019-02-28] MEDS ORDERED: PANTOPRAZOLE 40 MG INJ IVP ONE (11:55)
[2019-02-28] MEDS ORDERED: SODIUM CHLORIDE 0.9% 10ML INJ IV PRN (11:55)
[2019-02-28] MEDS: ONDANSETRON 4 MG/2 ML VIAL IV PRN ×2 (12:31→20:54)
--- NOTE | 2019-02-28 22:51 | PN ---
Date of Progress Note: 02/28/2019 Subjective: Patient was seen this morning for followup. She was lying in bed, not in distress still complaining of nausea and chest pain. No new complaints overnight reported. Objective: Vital Signs: Reviewed. HEENT: Examination unremarkable. Lungs: Clear to auscultation. No rhonchi, no rales. Heart: Sounds normal. Abdomen: Soft. Bowel sounds normal. No guarding, rigidity, tenderness, or distention. Extremities: No leg edema. Laboratory Data: Wound white count 3.5, hemoglobin 9.1, platelets 75. Sodium 142, potassium 4.1, ch loride 114, bicarb 21, BUN 22, creatinine 1.05, glucose 109. Echocardiogram done today, results discussed with ripshear operator, and echocardiogram was normal. Impression: 1.Nephrotic syndrome. 2.Acute nephritis. 3.Rule out systemic lupus erythematosus. 4.Chest pain. 5.Gastroesophageal reflux disease. 6.Pancytopenia. Plan: I did discuss details with her sequins stringer, Dr. Faustin and she has discussed details with her n ephrologist. She has given her clearance for kidney biopsy that the gravity flow irrigator is planning to do t omorrow as long as patient's platelet count is more than 50,000, her risk from such procedure should be acceptable as per my discussion with the sequins stringer, so gravity flow irrigator is planning to do this kidn ey biopsy tomorrow. Our working diagnosis is to rule out lupus, appropriate testing has been ordered . Rheumatoid factor test came back positive. HIV test is negative. There is no evidence of any car diomyopathy. Ejection fraction is normal. We will continue pain medication IV Protonix and IV Zofra n was ordered. Ambulation was encouraged. She was advised to move her legs while she is sitting or lying down to reduce chances of any blood clot and I will see her tomorrow. Depending on her conditi on, we will decide whether we can discharge her tomorrow or day after tomorrow. Upon discharge, kita ent will follow up with my office as well as sequins stringer in 2 weeks, and gravity flow irrigator per his recomm endation. Patient will also need to have follow up with protective officer, which we will schedule that on outpatient basis as we do not have any protective officer to provide inpatient consultation. COCO/MODL Voice ID: [id number] Report ID: [id number]
[2019-02-28 23:28] LABS: Urine Protein/Creatinine Ratio 5.61 ratio (<0.15)
[2019-03-01] MEDS: ONDANSETRON 4 MG/2 ML VIAL IV PRN ×4 (00:37→21:47)
[2019-03-01] MEDS: HYDROCODONE/APAP 5/325 MG TAB PO PRN (00:37)
--- NOTE | 2019-03-01 02:40 | CON ---
Date of Consultation: 02/28/2019 Reason For Consultation: Elevated proteinuria, anasarca. History Of Present Illness: This is a pleasant 23-year-old female without any significant past medic al history, except H pylori back in December. Patient apparently went to do a surgery in the [facility]; and there, on the workup, was found to have leukopenia. For that reason, the surgery has be en postponed. Patient started complaining of increased leg swelling with chest tightness and sharp c hest pain with any deep breath. For that reason, the patient came to the hospital and advised for fu rther workup. Primary workup in the hospital showed pancytopenia with anemia. Patient, according to her, was also found to have foamy urine and significant proteinuria. According to the patient, kita taylor is taking Aleve around 400-600 every other day for the last few months. Again, the only exposure to any medication was in December for the antibiotic for H pylori and PPI. Patient denied any IV contra st. No other symptoms. Patient denied any hematuria. No rash. Denied any photosensitivity. Shashank nt complaining of joint pain without any morning stiffness. No mouth or vaginal ulcer. Reviewing the record for the patient back in December, there was marginal thrombocytopenia with the plate lets of 146, without any significant anemia. Her white count was 4.1. At that time, she had urinalysis with +2 blood with only trace proteinuria. Past Medical History: Includes H pylori. Allergies: NO KNOWN DRUG ALLERGIES. Home Medications: Pantoprazole and Aleve. Surgical History: Negative. Review of Systems: Head and Neck: No red eye. No ear pain. No hair loss. GI: Has epigastric pain. : Has foamy urine. STAPLE CUTTER: No vaginal discharge. No ulcer. Cardiovascular: Pleuritic chest pain, shortness of breath. Neuro: No neuropathy. Musculoskeletal: Multiple joint pain without any swelling, pleuritic pain. Endocrine: No polydipsia. Skin: No rash. No photosensitivity. Physical Examination: Vital Signs: When I saw the patient, blood pressure of 159/93, pulse of 86, afebrile. Patient had g ood urine output. Chest: Clear to auscultation. Could not appreciate any pleuritic rubs. Heart: S1, S2. Again, could not appreciate any pericardial rubs. No tachycardia. Abdomen: Soft, nontender. Extremities: Plus edema. Neurologic: Alert and oriented x3, no focal. Laboratory Data: Lab data back in December: Urinalysis; +2 blood, trace protein. RBC less than 5, WBC 4.1, H and H 13.4/40.7, platelets 146. Sodium 143, potassium 4.3, bicarb 24, BUN 10, creatinine 0.5, calcium 8.1. LFT within normal limit. On this admission, sodium 143, potassium 4.3, bicarb 20, BUN of 21, creatinine 1.1, GFR of 60, calcium 7.8. TSH 3.3. Urinalysis; +3 protein. Random protein 16 35, do not have protein-creatinine ratio. Serology still pending. Current Medications: In this hospitalization include: 1.Tylenol. 2.Zofran. 3.Pantoprazole. Renal ultrasound showing normal size kidney, 05/23; no hydronephrosis. Assessment And Plan: 1.Proteinuria, mostly nephrotic range of proteinuria with pleurisy and leukopenia, with thrombocytop enia and lymphopenia. Mostly, patient has lupus nephritis/lupus. I am going to go ahead and proceed with kidney biopsy. I had long discussion with the patient in presence of her family of risks, bene fits, and alternatives. Patient agreed on the kidney biopsy. We will go ahead and proceed with the kidney biopsy. Next, I am going to go ahead and send for full serology and we will send for protein, creatinine to quantify the proteinuria. Next, continue pain medication to control the pain. Whenev er we have the kidney biopsy, we will go ahead and start the patient empirically on prednisone to con trol her possible flare if okay with the primary. 2.Hypertension, stable. We will continue to monitor the patient. We will consider MITCH inhibitor af ter the biopsy and for the time being, given the pain, I am going to start the patient on low dose of beta-bentley and we will follow up the patient. 3.Proteinuria, mostly secondary to SLE nephritis as above. Thank you, Dr. Vance, for allowing us to participate in the care of your patient. KHADIJAH/ANTONIETTA Voice ID: [id number] Report ID: [id number]
[2019-03-01] MEDS: NA CHLORIDE 0.9% 1,000 ML IV SCH ×2 (05:08→10:00)
[2019-03-01 05:59] LABS: MPV 10.5 fL (7.6-11.3)
[2019-03-01 06:25] LABS: Albumin 2.1 g/dL (3.4-5.0); Phosphorus 3.2 mg/dL (2.5-4.9); Potassium 4.4 mmol/L (3.5-5.1)
[2019-03-01 06:26] LABS: Thyroid Stimulating Hormone 6.23 uIU/mL (0.360-3.740)
[2019-03-01 07:51] LABS: Platelet Estimate DECR
[2019-03-01 08:14] LABS: Protime INR 1.02
--- NOTE | 2019-03-01 08:22 | ECHO ---
HEIGHT: 5 ft 5 in WEIGHT: 199 lb 0 oz DATE OF STUDY: 02/28/[address]: Adolfo Main MD 2-DIMENSIONAL: YES M.MODE: YES DOPPLER: YES COLOR FLOW: YES TDS: NO PORTABLE: NO DEFINITY: NO BUBBLE STUDY: NO DIAGNOSIS: CHEST PAIN CARDIAC HISTORY: CATHERIZATION: NO SURGERY: NO PROSTHETIC VALVE: NO PACEMAKER: NO MEASUREMENTS (cm) DIASTOLIC (NORMALS) SYSTOLIC (NORMALS) IVSd 0.9 (0.6-1.2) LA Diam 2.8 (1.9-4.0) LVEF 69% LVIDd 4.6 (3.5-5.7) LVIDs 2.9 (2.0-3.5) %FS 38% LVPWd 1.2 (0.6-1.2) Ao Diam 2.6 (2.0-3.7) 2 DIMENSIONAL ASSESSMENT: RIGHT ATRIUM: NORMAL LEFT ATRIUM: NORMAL RIGHT VENTRICLE: NORMAL LEFT VENTRICLE: NORMAL TRICUSPID VALVE: NORMAL MITRAL VALVE: NORMAL PULMONIC VALVE: NORMAL AORTIC VALVE: NORMAL PERICARDIAL EFFUSION: NONE AORTIC ROOT: NORMAL LEFT VENTRICULAR WALL MOTION: NORMAL DOPPLER/COLOR FLOW: NORMAL COMMENTS: NORMAL 2D ECHOCARDIOGRAM WITH DOPPLER. NO EFFUSION. NO WALL MOTION ABNORMALITY. TECHNOLOGIST: Lulu PIMENTEL
[2019-03-01] MEDS: METOPROLOL TAR 25 MG TAB PO SCH ×2 (08:51→21:47)
[2019-03-01] MEDS ORDERED: PANTOPRAZOLE 40 MG INJ IVP SCH (09:00)
--- NOTE | 2019-03-01 10:13 | CON ---
Date of Consultation: 02/28/[address] Vance's service on 02/27/2019, I saw the patient on 02/28/2019. Reason For Consultation: Necrotic syndrome and chest pain. History Of Present Illness: The patient is a 23-year-old black [place] woman, who has been seeing Russ Vance only recently. She was having some chest pain and Dr. Vance had recommended a cardiac workup on her prior to a plastic surgery procedure that she had planned to do in the [place]. Linda ramos had gone to the [facility] and after her blood work her surgery was canceled. Continued to have chest pain, was admitted through the emergency room for further cardiac work and hematological workup. The patient admitting diagnosis is acute glomerulonephritis with proteinuria, pancytopenia, hypertension, and gastroesophageal reflux disease. Allergies: NONE. Review of Systems: Negative. Social History: Negative. Family History: Noncontributory. Medications: At home include Protonix. Physical Examination: Vital Signs: Her initial blood pressure was 177/119. She was in sinus rhythm. HEENT: Negative. Neck: Supple with no bruit, lymphadenopathy, JVD, or thyromegaly. Chest: Clear to auscultation and percussion. Cardiac: Revealed a regular rhythm and rate. No murmurs, gallops, or rubs. Abdomen: Benign. Extremities: Revealed no clubbing or cyanosis. She had 1+ edema. Skin: Her skin was dry and intact. Neurological: She was nonfocal. Diagnostic Data: Her D-dimer was 6661. Her BNP was 1704. Creatinine is 1.15. Platelet count was 8 8,000. White count was 3300, hemoglobin was 10.7. Renal ultrasound was normal. Abdominal ultrasoun d looked normal. Venous Doppler was normal. CT of her abdomen showed possible UTI. CT angiogram of the chest was negative. Impression And Plan: Working diagnosis, acute glomerulonephritis with proteinuria, pancytopenia, hyp ertension, gastroesophageal reflux disease, and chest pain. Her chest pain is very atypical, that is constant and has been going on for 3 days and midepigastric, not related to exertion, food, time of the day, or body position. Echocardiogram is pending. The patient was getting nephrologic workup, r heumatologic workup, and hematologic workup. I will see what her echo shows and I will discuss the c ase further with Dr. Vance. MIGUEL/ANTONIETTA Voice ID: [id number] Report ID: [id number]
[2019-03-01] MEDS ORDERED: cloNIDine HCl 0.1 MG TAB ONE (11:00)
--- NOTE | 2019-03-01 13:08 | RAD REPORT ---
EXAM DESCRIPTION: CT - Renal Biopsy CT - 03/01/2019 12:15 pm CLINICAL HISTORY: RENAL BX Nephrotic syndrome COMPARISON: No comparisons FINDINGS: Preoperative diagnosis: Nephrotic syndrome Post operative diagnosis: Same Conscious Sedation: 45 minutes IV conscious sedation was administered utilizing midazolam and fentany l. Patient was continuously monitored by nursing staff. Contrast used: NONE Estimated blood loss: less than 5 mL Specimens: 3 x18 gauge core specimens The patient was placed prone on the table and the left posterior flank area was prepped and draped in the usual sterile fashion. 1% lidocaine was infiltrated into the subcutaneous tissues for local anes thesia. Under computed tomographic guidance, a 17 gauge introducer was advanced into the inferior susy e left kidney. Subsequently, a 18 gauge, 20 mm throw core biopsy gun was advanced into the lesion and 3 cores were obtained. Postprocedure imaging demonstrated no complications. Samples were given to pathology for analysis. Th e patient tolerated the procedure without immediate complication and transferred to the recovery room in stable condition. IMPRESSION: Successful CT-guided nonfocal left renal biopsy. 45 minutes of IV conscious sedation was utilized. All CT scans are performed using dose optimization technique as appropriate and may include automated exposure control or mA/KV adjustment according to patient size.
[2019-03-01 13:41] LABS: RBC Red Blood Cell Count 2.53 M/uL (3.86-4.86)
[2019-03-01 14:03] LABS: Absolute Lymphocytes (CBC) 0.7 K/uL (0.7-4.9); Basophils % 0.5 % (0-1.3); Hematocrit 22.3 % (36.0-45.0); MPV 11.2 fL (7.6-11.3); RBC Red Blood Cell Count 2.56 M/uL (3.86-4.86)
[2019-03-01 14:24] LABS: Blood Morphology Comment NOT SEEN (NOT SEEN); Platelet Estimate DECR; Urine White Blood Cell Casts OK
[2019-03-01 14:25] LABS: C-Reactive Protein 22.4 mg/L (<3.00); Ferritin 341.6 ng/mL (8-388); Folic Acid, (Folate) 15.5 ng/mL (3.1-17.5)
[2019-03-01 14:44] LABS: Potassium 4.5 mmol/L (3.5-5.1)
[2019-03-01 15:53] LABS: Bilirubin Direct 0.1 mg/dL (0-0.2); Bilirubin Total 0.4 mg/dL (0.2-1.0)
[2019-03-01] MEDS ORDERED: predniSONE 20 MG TAB PO ONE (16:00)
--- NOTE | 2019-03-01 19:58 | CON ---
Additional Consulting Physician: Kyler Vance MD. Reason For Consultation: Pancytopenia. History Of Present Illness: Nazia is a 23-year-old lady who presented to the emergency room 2 days ago with complaints of worsening chest and back pain for about 3 days. She said the pain sta rted in the back and soon moved to the front of her chest beneath her breast on both sides, the pain is worsened by deep breath and cough. She denies any cough productive of sputum, but did notice shor tness of breath because she could not catch her breath. While in the emergency room, an evaluation i ncluding a CT chest, abdomen and pelvis revealed no evidence of pulmonary embolism or lymphadenopathy in the chest or abdomen. She was noted to be pancytopenic, the white blood count in the emergency d epartment was 3300 with a hemoglobin of 10.7 and a platelet count of 88,000. She gives a history of going to the [facility] in January for a cosmetic procedure. Preoperat ritesh evaluation revealed that her blood counts were low, the procedure was abandoned and she did retur n home after a week long vacation. She denies having low blood counts prior to this. She gives a hi story of leg swelling bilaterally, which worsened after the trip to the [facility]. She has the swelling moved up her body and then her hands were swollen as was her face. She complains of gai kerri weight steadily in the past month, she gained 9 pounds in 3 days just prior to hospitalization. There is a history of fever with sweats and chills twice in the past month. She says her urine was checked in the [facility] [place] and she was put on cefixime for presumptive urinary tract infection . She gives a history of straightener and aligner stiffness and pain in her toes and both hands. She denies an y history of rash or aphthous ulcers. She has had abdominal pain mainly in the epigastric area. She was diagnosed with H pylori infection 2 months ago and treated by Dr. Vance, but says that her pain a nd discomfort has persisted resulting in her avoiding eating altogether. There is no history of recu rrent infections, bleeding or transfusion. Medical Review Of Systems: As noted above. Past Medical History: Significant for: 1.H pylori infection. 2.Gastroesophageal reflux disease. Past Surgical History: She has had no previous surgeries. Medications At Home: Pantoprazole 40 mg p.o. daily. Allergies: SHE HAS NO KNOWN DRUG ALLERGIES. Social History: She does not smoke cigarettes, but has smoked marijuana off and on for few years. D rinks alcohol socially. Mom and dad both have diabetes and high blood pressure, there is no family h istory of autoimmune disease in her 4 siblings or in immediate family members. Physical Examination: Nazia was in bed with her boyfriend at her bedside. She appears a bit uncomfortable due to the chest pain. Vital Signs: She has been afebrile. Temperature was 97.5 Fahrenheit, pulse 79, respirations 22 per minute and somewhat shallow. Blood pressure was 115/96. She is saturating at 98% on room air. General: Generalized anasarca with pallor. No icterus, clubbing, petechiae or bleeding was noted. HEENT: No evidence of petechiae, mucositis or thrush. Lymph Node Survey: No palpable lymphadenopathy in the neck, axilla, or groin. Chest: Bilateral vesicular breath sounds, which are reduced at the bases, both anteriorly and neurology physician assistant iorly. There was no audible rub. No bronchial breath sounds, rhonchi, or rales were heard. Heart: Sounds reveal tachycardia with normal S1, S2. No pericardial rub. No gallops or murmurs. Abdomen: Soft and nondistended. Bowel sounds are present. Liver and spleen were not palpable. Extremities: Showed 3+ bilateral edema. Neurologic: She is alert and oriented with no acute deficits. Laboratory Data: Lab data from this morning revealed white count of 2300 with an absolute neutrophil count of 1500, hemoglobin was down to 8 g/dL, platelet count was 76,000. Sedimentation rate was neeta cked, was normal at 8. Reticulocyte count was normal as well. PT/PTT was normal. C-reactive protei n is significantly elevated at 22.4, normal is less than 3. Chemistry reveal a BUN of 26, creatinine of 1.29 for estimated GFR of 52. Her albumin is significantly decreased at 2.1. B12 and folate wer e normal. UA on admission revealed more than 50 rbc's, 10-20 wbc's per high-power field with 5-10 hy brittanie casts and significant 3+ proteinuria. CT scan of the chest, abdomen and pelvis showed mild pul monary edema with no evidence of pulmonary embolism, lymphadenopathy or mass. Assessment And Plan: Pancytopenia. My suspicion is that Nazia may have an underlying autoimmune dis ease such as systemic lupus erythematosus, which would account for the pancytopenia. No supportive t ransfusions indicated until hemoglobin is less than 6 or platelet count is less than 10, or if she gabriel s significant bleeding and platelet count is less than 50,000. An autoimmune workup was sent by Nephr ology service and is pending at this time. I would strongly recommend a Rheumatology referral as cece n as possible to diagnose the exact autoimmune condition and treatment of the underlying cause of the pancytopenia. Clinically and radiographically, there is no evidence of lymphoma or leukemia. I will follow up with patient in clinic 2 weeks following discharge to monitor her blood counts and t o make sure that they are not dropping, especially the platelet count and that she does not need stacy tment for ITP or an autoimmune hemolytic anemia. Thank you for asking me to see her. Please do not hesitate to call me if you have any other question sPattie GUTIERREZ/MODL Voice ID: [id number] Report ID: [id number]
[2019-03-01] MEDS ORDERED: AMPICILLIN/SULBACT 3 GM in NA CHLORIDE 0.9% 100 ML IVPB SCH (20:00)
[2019-03-01] MEDS: ACETAMINOPHEN 500 MG TAB PO PRN (21:46)
[2019-03-01] MEDS: AMPICILLIN TRIHYDRATE 250 MG CAP PO SCH ×2 (22:00→23:53)
--- NOTE | 2019-03-01 22:25 | PN ---
Date of Progress Note: 03/01/2019 Subjective: The patient was seen this morning for followup. She continues to have nausea and her ch est pain as she reported before. No new complaints. She also continues to have pain in her joints, especially her hands and left knee now. She has some swelling of this joint as well. Objective: Vital Signs: Reviewed. HEENT: Unremarkable. Lungs: Clear to auscultation. No rhonchi. No rales. Heart: Heart sounds normal. Abdomen: Soft. Bowel sounds normal. No guarding, rigidity, tenderness, or distention. Extremities: No leg edema. There is some swelling of the synovial joints of her hands, MCP joint. Left knee has slight synovial swelling. Laboratory Data: Platelet count this morning was 78. Impression: 1.Nephrotic syndrome. 2.Proteinuria secondary to above. 3.Pericarditis. 4.Pleurisy. 5.Probable systemic lupus erythematosus. 6.Pancytopenia. Plan: Patient has multiple system involvement including bone marrow, kidney, and pericarditis as wel l as pleurisy type of symptoms and joint involvement. At this point, our working diagnosis is system ic lupus erythematosus. I did talk to chief port director this morning. The patient had a kidney biopsy do ne today as per chief port director, and after the kidney biopsy, chief port director contacted me, informed me lupis t there was a small area of perinephric hematoma as a result of biopsy. So in view of the patient's low platelet count, it will be advisable to monitor her overnight in the hospital. I have ordered so me blood work, so we will monitor her hemoglobin and platelet count. I did talk to chief port director this morning as well about the treatment plan upon discharge from the hospital. Senior Support Analyst wants the p atient to go home with high-dose prednisone, which will be 60 mg daily, and we will start that tomorr ow morning, and chief port director will see her next week on Tuesday, and by that time, he should have bi opsy results back, and he will decide about further treatment plan, and how to taper off her predniso ne dose. Details were discussed with the patient and patient's this morning. COCO/MODL Voice ID: [id number] Report ID: [id number]
--- NOTE | 2019-03-02 02:49 | PN ---
Date of Progress Note: 03/01/2019 Subjective: The patient was admitted with nephrotic range of proteinuria and pleurisy. Patient plan tamara for a kidney biopsy today. Blood pressure on the upper side. We will medicate the patient. Physical Examination: Vital Signs: Blood pressure 169/98, pulse of 90. Chest: Clear to auscultation. HEART: S1, S2 regular. Abdomen: Soft, nontender. Extremities: Plus edema. Laboratory Data: WBC 2.3, H and H of 8/22.3, platelets 76. Sodium 141, potassium 4.4, bicarb 20, BU N 26, creatinine 1.2, calcium 7.1, phosphorus 3.2, albumin 2.1, corrected calcium is 8.6, PC ratio 5. 6. Serology is still pending. Rheumatoid factor was positive. Current Medications: 1.Unasyn. 2.Metoprolol 25 b.i.d. 3.Pantoprazole. Assessment And Plan: 1.Nephrotic range of proteinuria, secondary to lupus. We will follow up after biopsy. Patient if s table after biopsy will be cleared from the renal standpoint for discharge planning. After that, we will start the patient on prednisone 60 mg. Then, patient is going to follow up as outpatient in the office. 2.Hypertension, not controlled. We will start the patient on calcium channel bentley to control her blood pressure. We will consider MITCH inhibitor if patient not going to be interested on any pregnan cy later on. 3.Nephrotic range of proteinuria as above. 4.Pleurisy secondary to systemic lupus erythematosus. We will start the patient on prednisone after the biopsy. KEITH Voice ID: [id number] Report ID: [id number]
[2019-03-02 05:06] LABS: HBsAG Nonreactive (Nonreactive)
[2019-03-02 05:49] LABS: Absolute Lymphocytes (CBC) 0.5 K/uL (0.7-4.9); Basophils % 0.2 % (0-1.3); Hematocrit 25.2 % (36.0-45.0); Lymphocytes % 30.4 % (15.3-44.8); MPV 11.1 fL (7.6-11.3); RBC Red Blood Cell Count 2.88 M/uL (3.86-4.86)
[2019-03-02 05:59] LABS: Albumin 2.2 g/dL (3.4-5.0); Phosphorus 3.6 mg/dL (2.5-4.9)
[2019-03-02] MEDS ORDERED: AMPICILLIN TRIHYDRATE 500 MG CAP PO SCH (07:30)
[2019-03-02] MEDS: ONDANSETRON 4 MG/2 ML VIAL IV PRN (08:11)
[2019-03-02] MEDS: METOPROLOL TAR 25 MG TAB PO SCH ×2 (08:14→20:26)
[2019-03-02] MEDS: NA CHLORIDE 0.9% 1,000 ML IV SCH ×2 (08:15→18:00)
[2019-03-02] MEDS: RANITIDINE 150 MG TABLET PO SCH ×2 (08:17→20:26)
[2019-03-02] MEDS ORDERED: predniSONE 20 MG TAB PO SCH (09:00)
[2019-03-02] MEDS ORDERED: AMLODIPINE 5 MG TAB PO SCH (09:00)
--- NOTE | 2019-03-02 09:27 | RAD REPORT ---
EXAM DESCRIPTION: US - Renal Ultrasound-Complete - 03/02/2019 8:48 am CLINICAL HISTORY: Acute kidney injury, recent renal biopsy COMPARISON: CT biopsy study March 01, renal ultrasound February 27 FINDINGS: The right kidney measures 10.7 x 4.9 x 6.5 cm. The left kidney measures 11.7 x 6.1 x 6.2 cm. Renal cortical thickness and echogenicity are normal. No hydronephrosis or suspicious renal mass. No perinephric mass or hematoma seen. No evidence for post biopsy bleeding. Bladder is contracted limiting assessment. IMPRESSION: No hydronephrosis or suspicious renal mass. No perinephric hematoma or other post biopsy complication.
[2019-03-02 11:28] VITALS: O2SAT 98
--- NOTE | 2019-03-02 13:17 | P.PN ---
Subjective Date of Service: 03/02/19 Subjective pt admitted for renal biopsy, have nephrotic range proteinuria and pancytopenia Today mild discomfort at biopsy site H/h stable Cr up to 1.5, no NSAID , MITCH or ARB agree with IVF Rpt labs If Cr at baseline , then pt can be discharged from nephrology point of view Physical Examination - Vital Signs Temperature: 97.7 F Blood Pressure: 148/86 Pulse: 86 Respirations: 20 Pulse Ox (%): 98 - Physical Exam General: Alert, Oriented x3 HEENT: Atraumatic Neck: Supple, Without JVD or thyroid abnormality Respiratory: Clear to auscultation bilaterally, Normal air movement Cardiovascular: Regular rate/rhythm, Normal S1 S2, No gallops, No rubs, No murmurs, Edema - Studies Microbiology Data (last 24 hrs): 02/27/19 13:11 Clean Catch Urine Belle Count - Final >100,000 CFU/ML. 02/27/19 13:11 Clean Catch Urine - Final Enterococcus Faecalis Assessment And Plan - Current Problems (Diagnosis) (1) TANISHA (acute kidney injury) Current Visit: Yes Status: Acute (2) Proteinuria Current Visit: Yes Status: Acute - Plan TANISHA US no hydro possibly due to dehydration as pt was NPO agree with IVF rpt labs today Nephrotic range of proteinuria with pancytopenia possibly due to lupus S/P biopsy Cont prednisone HTN Cont current meds
[2019-03-02] MEDS: AMPICILLIN TRIHYDRATE 500 MG CAP PO SCH ×2 (14:42→20:26)
[2019-03-02 15:48] LABS: Potassium 4.4 mmol/L (3.5-5.1)
[2019-03-02] MEDS: ACETAMINOPHEN 500 MG TAB PO PRN (16:53)
[2019-03-02 18:01] LABS: Urine Appearance CLOUDY; Urine Bilirubin NEGATIVE (NEG); Urine Blood 3+ (NEG); Urine Color YELLOW; Urine Glucose NEGATIVE (NEG); Urine Protein 3+ (NEG); Urine Specific Gravity 1.015 (1.005-1.030); Urine Urobilinogen 0.2 mg/dL (0.2-1.0); Urine pH 5.5 (5.0-7.0)
[2019-03-02 18:29] LABS: Urine Microscopic Reflex ORDER UMIC
[2019-03-02] MEDS: HYDROCODONE/APAP 5/325 MG TAB PO PRN (20:27)
[2019-03-02 20:28] VITALS: BP 150/92
[2019-03-02 20:28] LABS: Urine RBC 20-50 /HPF (NONE SEEN)
[2019-03-02 20:32] LABS: Urine Bacteria 20-50 /HPF (<20)
[2019-03-02 20:33] LABS: Urine Culture Reflex Order REFLEXED; Urine Mucus 1+ /HPF (NONE SEEN); Urine White Blood Cell Casts 0-5 /LPF (NONE SEEN)
[2019-03-02 21:28] VITALS: TEMP 98.4
[2019-03-03 10:55] LABS: HIV AG/AB 4TH GEN Non-reactive (Non-reactive)
[2019-03-04 16:14] LABS: HIV AG/AB 4TH GEN Non-reactive (Non-reactive)
[2019-03-05 03:42] LABS: Albumin, (SPE) 2.3 g/dL (3.8-4.8); Alpha-1-Globulins 0.4 g/dL (0.2-0.3); Alpha-2-Globulins 0.4 g/dL (0.5-0.9); INTERPRETATION REPORT
--- NOTE | 2019-03-06 03:39 | DS ---
Date of Discharge: 03/02/2019 Disposition: Patient was transferred to [facility] in [place]. Physical Examination: HEENT: Unremarkable. Lungs: Clear to auscultation. Heart: Sounds normal. Abdomen: Soft. Bowel sounds normal. No guarding, rigidity, tenderness, or distention. Extremities: No leg edema. Laboratory Data And Investigation Done During This Hospitalization: Upon admission, white count was 3.3, hemoglobin 10.7, platelets 88. Last white count on the day of discharge 1.8, hemoglobin 8.8, pl atelets 94. Her initial sodium 143, potassium 4.3, chloride 114, bicarb 20, BUN 22, creatinine 1.15, glucose 89. Troponin less than 0.02 x3. Last chemistry on the day of discharge, sodium 138, potass ium 4.4, chloride 109, bicarb 19, BUN 37, creatinine 1.66, glucose 130. C-reactive protein 22.4. La st urinalysis on the day of discharge, 20-50 rbc's, 20-50 bacteria, 5-10 wbc's. Rheumatoid factor po sitive; complement C3 level was 35, low; complement C4 level was 4 and it was low. SHARON pending. HIV negative. Hepatitis profile negative. Renal ultrasound was unremarkable for any acute changes. Ec hocardiogram showed normal ejection fraction. It was normal echocardiogram. Her chest x-ray showed no acute intrathoracic changes. CAT scan of the chest per PE protocol, no evidence of pulmonary embo lism. Venous Doppler of leg was negative for DVT. CAT scan of abdomen showed no evidence of any acu te intraabdominal finding. Right upper quadrant abdominal ultrasound was negative. Final Diagnoses: 1.Acute renal failure. 2.Acute pericarditis. 3.Pleurisy. 4.Inflammatory arthropathy, multiple joints. 5.Rule out systemic lupus erythematosus. 6.Nephrotic syndrome. 7.Pancytopenia. 8.Hypertension. 9.Gastroesophageal reflux disease. Hospital Course: This is a 23-year-old pleasant female patient, who was admitted to the hospital wit h complaints of chest pain, nausea. Please see dictated H and P for more information. After patient was evaluated in the emergency room, she was admitted to the hospital. The patient had significant amount of pain in the center of her chest. This pain is located right in the middle of her chest bet ween anterior and posterior chest wall. Pain was getting worse with certain position or deep breathi ng. Narcotic pain medication was beneficial to certain extent. The patient was noted to have protei lori along with this pancytopenia. This was nephrotic range proteinuria. Nephrology consultation w as obtained from Dr. Boykin and Hematology consultation was obtained from Dr. Faustin. Details were d iscussed with consultants. Cardiology consultation was obtained from Dr. Murray. I did discuss CT chest PE protocol findings with radiologist to make sure that he had a good look at aorta and he did confirm that he was able to take a look at entire thoracic aorta and there was no evidence of any acu te aortic finding. Our working diagnosis was lupus. Appropriate tests were sent by tumbling instructor. N ephrologist also ordered a kidney biopsy, which was done. After kidney biopsy, the patient had small amount of perinephric hematoma, so decision was made to keep her in the hospital for close observati on. She did not have any drop in her hemoglobin, but after the kidney biopsy, the day after kidney b iopsy in the morning, her creatinine went up to 1.5. We gave her some IV fluid, discontinued her Pro tonix and in the afternoon, her creatinine went up to 1.68. So, instead of getting better, her creat inine was getting worse. With this acute problem, we were concerned about worsening of renal functio n and details were discussed with tumbling instructor and we both decided that it would be best for the kita ent to go to [facility] for higher level of care and our tumbling instructor will continue to look a fter her at that particular facility and after arrangements completed, the patient was transferred vi a ground ambulance. I did talk to patient and her and she was agreeable for transfer. On day of kidney biopsy, after the biopsy was done, she was started on prednisone 60 mg by mouth daily and that actually did help her to improve her chest pain complaint. The patient also had multiple j oint swelling and pain involving mostly her hands and knees, and after 2 doses of prednisone 60 mg, e ach time her chest pain symptoms and joint pain symptoms have improved significantly, but not resolve d. At the time of discharge, kidney biopsy result was pending. I have instructed to come see me ham schmitz 2 days after she gets discharged from [place]. At this point, I am hoping they will accept, she would like to follow up at her clinic in about 2 weeks. The patient did not require any blood transf usion or platelet transfusion during this hospitalization. COCO/MODL Voice ID: [id number] Report ID: [id number]
[2019-03-06 13:12] LABS: Vitamin D 1,25-Dihydroxy Total 51 pg/mL (18-72); Vitamin D,1,25-OH2, D2 <8 pg/mL
== END 2019-03-02 22:53 | disposition short-term general hospital (02) | DRG 683 ==
LOC: ER 11:34 → ERHOLD 16:06 → 2ND 20:02
PROVIDERS: ADMIT Internal Medicine; ATTEND Internal Medicine
PROC: 0TB13ZX Excision of Left Kidney, Percutaneous Approach, Diagnostic (ICD-10-PCS; principal; 2019-03-01)
DX: N17.9 Acute kidney failure, unspecified (principal); I30.9 Acute pericarditis, unspecified; D61.818 Other pancytopenia; R09.1 Pleurisy; M12.89 Other specific arthropathies, not elsewhere classified, multiple sites; N04.9 Nephrotic syndrome with unspecified morphologic changes; I10 Essential (primary) hypertension; K21.9 Gastro-esophageal reflux disease without esophagitis; M32.9 Systemic lupus erythematosus, unspecified; R80.9 Proteinuria, unspecified
CPT/HCPCS: 36415; 71045; 71275; 74177; 76705; 76770; 80048; 80069; 80074; 80076; 81003; 81015; 81025; 82247; 82248; 82570; 82607; 82652; 82728; 82746; 83010; 83520; 83540; 83615; 83690; 83880; 83970; 84156; 84165; 84439; 84443; 84466; 84484; 85025; 85027; 85044; 85049; 85379; 85610; 85652; 86021; 86038; 86140; 86160; 86225; 86308; 86430; 86704; 86706; 86850; 86880; 86900; 86901; 87077; 87086; 87088; 87186; 87389; 88300; 93306; 93970; 96361; 96374; 96375; 99285; C9113; G0433; J1170; J2405; J2550; J3010; J3360; J7030; J7512; Q9967

== ENCOUNTER 2019-03-28 07:20 | Day surgery (SDC) | payer BC ==
[2019-03-28] MEDS ORDERED: NA CHLORIDE 0.9% 250 ML ONE (07:33)
[2019-03-28 09:18] VITALS: BP 138/68; TEMP 97.8; O2SAT 99
[2019-03-28 09:20] VITALS: BMI 31.6
[2019-03-28] MEDS ORDERED: FUROSEMIDE 40 MG/4 ML VIAL ONE (10:56)
[2019-03-28 12:36] LABS: Hematocrit 26.1 % (36.0-45.0)
== END 2019-03-28 12:35 | disposition home or self-care (01) ==
LOC: DS 07:20
PROVIDERS: ATTEND Internal Medicine
DX: D50.9 Iron deficiency anemia, unspecified (principal); N18.4 Chronic kidney disease, stage 4 (severe); R80.9 Proteinuria, unspecified
CPT/HCPCS: 36415; 86900; 86850; 86901; 85018; 85014; 36430; J1940; P9016; J7030

== ENCOUNTER 2019-09-06 14:23 | Emergency (ER) | payer BC ==
[2019-09-06 15:56] LABS: Absolute Lymphocytes (CBC) 2.2 K/uL (0.7-4.9); Basophils % 0.9 % (0-1.3); Hematocrit 33.9 % (36.0-45.0); Lymphocytes % 36.5 % (15.3-44.8); MPV 10.5 fL (7.6-11.3); RBC Red Blood Cell Count 3.94 M/uL (3.86-4.86)
[2019-09-06 16:01] LABS: Protime INR 1.02
[2019-09-06 16:23] LABS: ALT/SGPT 25 U/L (12-78); Alkaline Phosphatase 53 U/L (45-117); BUN Blood Urea Nitrogen 14 mg/dL (7-18); Bicarbonate 24 mmol/L (21-32); Bilirubin Direct < 0.1 mg/dL (0-0.2); Bilirubin Total 0.3 mg/dL (0.2-1.0); Glucose Level 98 mg/dL (74-106); NT PRO-BNP 29 pg/mL (<125); Protein, Total 7.7 g/dL (6.4-8.2); Sodium Level 139 mmol/L (136-145); Troponin (Emerg Dept Use Only) < 0.02 ng/mL (0.0-0.045)
[2019-09-06 16:39] LABS: AST/SGOT 20 U/L (15-37); Potassium 4.2 mmol/L (3.5-5.1)
[2019-09-06 16:53] LABS: Urine Glucose NEGATIVE (NEG)
[2019-09-06 16:54] LABS: Urine Blood 2+ (NEG); Urine Protein 2+ (NEG); Urine pH 5.5 (5.0-7.0)
--- NOTE | 2019-09-06 17:45 | RAD REPORT ---
EXAM DESCRIPTION: RAD - Chest Pa And Lat (2 Views) - 09/06/2019 3:58 pm CLINICAL HISTORY: SOB Chest pain. COMPARISON: Chest Single View dated 02/27/2019 FINDINGS: The lungs are clear. The heart is normal in size. No displaced fractures. IMPRESSION: No acute or concerning finding suspected.
--- NOTE | 2019-09-06 18:42 | RAD REPORT ---
EXAM DESCRIPTION: CT - Chest For Pe Angio - 09/06/2019 6:33 pm CLINICAL HISTORY: Chest pain. SOB COMPARISON: Chest For Pe Angio dated 02/27/2019 TECHNIQUE: CT angiogram of the pulmonary arteries was performed with MIP. All CT scans are performed using dose optimization technique as appropriate and may include automated exposure control or mA/KV adjustment according to patient size. FINDINGS: No evidence of pulmonary thromboembolism. No acute aortic finding demonstrated. The lungs are clear. No significant pericardial or pleural fluid. No concerning bony finding. IMPRESSION: No evidence of pulmonary thromboembolism. No acute lung findings.
[2019-09-06] MEDS ORDERED: NA CHLORIDE 0.9% 1,000 ML ONE (18:45)
--- NOTE | 2019-09-06 19:40 | ER ---
Nurse's Notes [facility] Name: Nazia Tierney Age: 24 yrs Sex: Female : 1995 Arrival Date: 09/06/2019 Time: 14:26 Bed 28 Private MD: Diagnosis: Other chest pain;Shortness of breath Presentation: 09/05 14:46 Chief complaint: Patient states: "I stopped taking my BP medication for about a week, ca1 because I haven't had it refilled. When I finally had it refilled, I started taking it again for about 2 days now. I took my BP and it was low, lowest 103/58. I also have Lupus so I am immunocompromised. This morning, I feel like I had a little shortness of breath and pressure in my chest". Denies fever, cough, congestion. Coronavirus screen: Patient denies fever greater than 100.4F, cough, shortness of breath, or difficulty breathing. Proceed with normal triage process. Ebola Screen: Patient negative for fever greater than or equal to 101.5 degrees Fahrenheit, and additional compatible Ebola Virus Disease symptoms Patient denies exposure to infectious person. Patient denies travel to an Ebola-affected area in the 21 days before illness onset. No symptoms or risks identified at this time. Initial Sepsis Screen: Does the patient meet any 2 criteria? No. Patient's initial sepsis screen is negative. Does the patient have a suspected source of infection? No. Patient's initial sepsis screen is negative. Risk Assessment: Do you want to hurt yourself or someone else? Patient reports no desire to harm self or others. Onset of symptoms was September 06, 2019. 14:46 Method Of Arrival: Ambulatory ca1 14:46 Acuity: ELDA 3 ca1 Triage Assessment: 15:15 Respiratory: the patient has mild shortness of breath. rb1 Historical: - Allergies: 14:51 No Known Allergies; ca1 - PMHx: 14:51 gastritis; Lupus; Hypertension; ca1 - PSHx: 14:51 None; ca1 - Immunization history:: Adult Immunizations up to date, Flu vaccine is up to date. - Social history:: Smoking status: Patient denies any tobacco usage or history of. Screenin:15 Abuse screen: Denies threats or abuse. Nutritional screening: No deficits noted. rb1 Tuberculosis screening: No symptoms or risk factors identified. Fall Risk None identified. Assessment: 15:15 General: Appears in no apparent distress. comfortable, Behavior is calm, cooperative, rb1 Denies fever. Pain: Complains of pain in chest Quality of pain is described as pressure. Neuro: Level of Consciousness is awake, alert, obeys commands, Oriented to person, place, time, situation. Cardiovascular: Capillary refill < 3 seconds is brisk in bilateral fingers Rhythm is regular. Respiratory: Reports shortness of breath Airway is patent Respiratory effort is even, unlabored, Respiratory pattern is regular. GI: No signs and/or symptoms were reported involving the gastrointestinal system. : No signs and/or symptoms were reported regarding the genitourinary system. Derm: Skin is pink, warm \\T\\ dry. 16:00 Reassessment: Patient appears in no apparent distress at this time. No changes from rb1 previously documented assessment. 17:00 Reassessment: Patient appears in no apparent distress at this time. Patient and/or rb1 family updated on plan of care and expected duration. Pain level reassessed. Patient is alert, oriented x 3, equal unlabored respirations, skin warm/dry/pink. 18:00 Reassessment: Patient appears in no apparent distress at this time. No changes from rb1 previously documented assessment. 18:54 Reassessment: Patient appears in no apparent distress at this time. Patient and/or rb1 family updated on plan of care and expected duration. Pain level reassessed. Patient is alert, oriented x 3, equal unlabored respirations, skin warm/dry/pink. 19:15 General: Appears in no apparent distress. Behavior is calm, cooperative. Pain: Denies ea pain. Neuro: Level of Consciousness is awake, alert, obeys commands, Oriented to person, place, time, situation. Cardiovascular: Patient's skin is warm and dry. Derm: Skin is pink, warm \\T\\ dry. 19:58 Reassessment: Patient and/or family updated on plan of care and expected duration. Pain ea level reassessed. Patient is alert, oriented x 3, equal unlabored respirations, skin warm/dry/pink. Discharge instruction given to patient, verbalized the understanding of instruction. Pt left ED ambulatory accompanied by family. Vital Signs: 14:46 BP 113 / 63; Pulse 72; Resp 16 S; Temp 98.4(TE); Pulse Ox 100% on R/A; Weight 86.18 kg ca1 (R); Height 5 ft. 5 in. (165.10 cm) (R); Pain 0/10; 16:20 BP 102 / 57; Pulse 66; Resp 16; Temp 98.7(O); Pulse Ox 100% on R/A; mh5 17:00 BP 105 / 63; Pulse 68; Resp 13; Pulse Ox 100% on R/A; rb1 18:00 BP 110 / 63; Pulse 67; Resp 12; Pulse Ox 100% on R/A; rb1 19:35 BP 110 / 68; Pulse 70; Resp 18; Pulse Ox 99% ; ea 14:46 Body Mass Index 31.62 (86.18 kg, 165.10 cm) ca1 ED Course: 14:26 Patient arrived in ED. ag5 14:33 Bud So MD is Attending Physician. kdr 14:50 Triage completed. ca1 14:51 Arm band placed on right wrist. ca1 15:13 Adolfo Bah PA is PHCP. cp 15:30 Faith Brush, DAWN is Primary Nurse. rb1 15:50 Initial lab(s) drawn, by nm, sent to lab. Inserted saline lock: antecubital area, using mh5 aseptic technique. 15:51 Patient has correct armband on for positive identification. Placed in gown. Bed in low mh5 position. Call light in reach. Warm blanket given. Pulse ox on. NIBP on. 15:56 XRAY Chest Pa And Lat (2 Views) In Process Unspecified. EDMS 16:24 Inserted saline lock: 22 gauge forearm, using aseptic technique. 5 18:24 PHCP role handed off by Adolfo Bah PA kb 18:24 Julia Menon FNP-C is PHCP. kb 18:35 CT Chest For PE Angio In Process Unspecified. EDMS 19:45 IV discontinued, intact, bleeding controlled, No redness/swelling at site. Pressure ea dressing applied. 19:58 No provider procedures requiring assistance completed. ea Administered Medications: 18:46 Drug: NS 0.9% 1000 ml Route: IV; Rate: 1 bolus; Site: right antecubital; rb1 19:45 Follow up: Response: No adverse reaction; IV Status: Completed infusion; IV Intake: ea 900ml Intake: 19:45 IV: 900ml; Total: 900ml. ea Outcome: 19:39 Discharge ordered by . dina 19:58 Discharged to home ambulatory. ea 19:58 Condition: stable 19:58 Discharge instructions given to patient, Instructed on discharge instructions, follow up and referral plans. Demonstrated understanding of instructions, follow-up care. 19:59 Patient left the ED. ea Signatures: Dispatcher [employer] EDMS Jluia Menon, ROOF PLUMBER-C ROOF PLUMBER-Ckb Bud So MD MD kdr Page, Corey, PA PA cp Barber, Rebecca, RN RN Florence Mann [facility] Gabrielle Phoenix RN RN ea Acob, Cheryl RN RN ca1 Chyna Barajas 5
--- NOTE | 2019-09-06 19:40 | EDPHYS ---
Physician Documentation [facility] Name: Nazia Tierney Age: 24 yrs Sex: Female : 1995 Arrival Date: 09/06/2019 Time: 14:26 Bed 28 Private MD: ED Physician Bud So HPI: 09/05 15:30 This 24 yrs old Female presents to ER via Ambulatory with complaints of Blood cp Pressure Problem, Shortness Of Breath, Chest Pain. 15:30 The patient has shortness of breath that occurred at home, while lying down and on side.cp 15:30 Onset: The symptoms/episode began/occurred this morning. Duration: The symptoms are cp intermittent. Associated signs and symptoms: Pertinent positives: episode of chest pain yesterday, Pertinent negatives: non-productive cough, productive cough, diaphoresis, fever. Severity of symptoms: in the emergency department the symptoms have improved moderately. 15:30 Patient reports checking blood pressure at home today and measuring it to be 103/58. cp 15:30 Patient reports she ran out of 1 of her blood pressure medications, Diltiazem, 1 week cp ago and resumed taking it 2 days ago. Historical: - Allergies: 14:51 No Known Allergies; ca1 - PMHx: 14:51 gastritis; Lupus; Hypertension; ca1 - PSHx: 14:51 None; ca1 - Immunization history:: Adult Immunizations up to date, Flu vaccine is up to date. - Social history:: Smoking status: Patient denies any tobacco usage or history of. ROS: 15:35 Constitutional: Negative for body aches, chills, fever, poor PO intake. cp 15:35 Eyes: Negative for injury, pain, redness, and discharge. cp Exam: 15:40 Constitutional: The patient appears in no acute distress, alert, awake, cp non-diaphoretic, non-toxic, well developed, well nourished. 15:40 Head/Face: Normocephalic, atraumatic. cp 15:40 Eyes: Pupils equal round and reactive to light, extra-ocular motions intact. Lids and lashes normal. Conjunctiva and sclera are non-icteric and not injected. Cornea within normal limits. Periorbital areas with no swelling, redness, or edema. ENT: Nares patent. No nasal discharge, no septal abnormalities noted. Tympanic membranes are normal and external auditory canals are clear. Oropharynx with no redness, swelling, or masses, exudates, or evidence of obstruction, uvula midline. Mucous membranes moist. Chest/axilla: Normal chest wall appearance and motion. Nontender with no deformity. No lesions are appreciated. 15:40 Cardiovascular: Rate: normal, Rhythm: regular, Edema: is not appreciated, JVD: is not appreciated. 15:40 Respiratory: the patient does not display signs of respiratory distress, Respirations: normal, no use of accessory muscles, no retractions, no splinting, no tachypnea, labored breathing, is not present, Breath sounds: are clear throughout, no decreased breath sounds, no stridor, no wheezing. 15:40 Abdomen/GI: Inspection: abdomen appears normal, Bowel sounds: active, all quadrants, Palpation: abdomen is soft and non-tender, in all quadrants. 15:40 Back: pain, is absent, ROM is normal. 15:40 Skin: no rash present. 15:40 Neuro: Orientation: to person, place \T\ time. Mentation: is normal, Cerebellar function: is grossly normal, Motor: moves all fours, strength is normal. 16:25 ECG was reviewed by the Attending Physician. Vital Signs: 14:46 BP 113 / 63; Pulse 72; Resp 16 S; Temp 98.4(TE); Pulse Ox 100% on R/A; Weight 86.18 kg ca1 (R); Height 5 ft. 5 in. (165.10 cm) (R); Pain 0/10; 16:20 BP 102 / 57; Pulse 66; Resp 16; Temp 98.7(O); Pulse Ox 100% on R/A; mh5 17:00 BP 105 / 63; Pulse 68; Resp 13; Pulse Ox 100% on R/A; rb1 18:00 BP 110 / 63; Pulse 67; Resp 12; Pulse Ox 100% on R/A; rb1 19:35 BP 110 / 68; Pulse 70; Resp 18; Pulse Ox 99% ; ea 14:46 Body Mass Index 31.62 (86.18 kg, 165.10 cm) ca1 MDM: 15:30 Differential diagnosis: Anemia asthma, Bronchitis CHF exacerbation, pneumonia, cp Pneumothorax pulmonary edema, Pulmonary Embolism. 15:32 Patient medically screened. 19:03 Data reviewed: vital signs, nurses notes. Data interpreted: Pulse oximetry: on room air kb is 100 %. Interpretation: normal. Counseling: I had a detailed discussion with the patient and/or guardian regarding: the historical points, exam findings, and any diagnostic results supporting the discharge/admit diagnosis, lab results, radiology results, the need for outpatient follow up, a family practitioner, to return to the emergency department if symptoms worsen or persist or if there are any questions or concerns that arise at home. Physician consultation: A Rajiv RILEY was called at 19:04, voicemail left. 19:38 ED course: Pt does not want to wait any longer, would like to go home. . kb 19:39 ED course: Resp even and unlabored. Lungs clear bilaterally. Pt reports she feels ok. kb 19:49 Physician consultation: A Rajiv RILEY was contacted at 19:50, regarding patient's condition.kb 09/05 15:23 Order name: Basic Metabolic Panel; Complete Time: 17:43 cp 09/05 17:43 Interpretation: Normal except: CL 109; GFR 78. cp 09/05 15:23 Order name: CBC with Diff; Complete Time: 16:42 cp 09/05 16:42 Interpretation: Normal except: HGB 11.4; HCT 33.9; MCV 86.1. cp 09/05 15:23 Order name: LFT's; Complete Time: 17:43 cp 09/05 17:43 Interpretation: Normal except: GLOB 3.7. cp 09/05 15:23 Order name: Magnesium; Complete Time: 17:43 cp 09/05 15:23 Order name: NT PRO-BNP; Complete Time: 17:43 cp 09/05 15:23 Order name: PT-INR; Complete Time: 18:11 cp 09/05 15:23 Order name: Troponin (emerg Dept Use Only); Complete Time: 17:43 cp 09/05 15:23 Order name: EKG; Complete Time: 15:24 cp 09/05 15:23 Order name: XRAY Chest Pa And Lat (2 Views); Complete Time: 17:53 cp 09/05 16:21 Order name: Urine Dipstick--Ancillary (enter results); Complete Time: 17:43 eb 09/05 16:21 Order name: Urine --Ancillary (enter results); Complete Time: 17:43 eb 09/05 17:54 Order name: D-Dimer; Complete Time: 18:11 EDMS 09/05 18:11 Interpretation: Abnormal: D-DIMER 537. cp 09/05 18:06 Order name: CT Chest For PE Angio; Complete Time: 18:59 cp 09/05 15:23 Order name: Cardiac monitoring; Complete Time: 16:18 cp 09/05 15:23 Order name: EKG - Nurse/Tech; Complete Time: 16:18 cp 09/05 15:23 Order name: IV Saline Lock; Complete Time: 16:04 cp 09/05 15:23 Order name: Labs collected and sent; Complete Time: 16:04 cp 09/05 15:23 Order name: O2 Per Protocol; Complete Time: 16:04 cp 09/05 15:23 Order name: O2 Sat Monitoring; Complete Time: 16:05 cp 09/05 15:23 Order name: Urine Test (obtain specimen); Complete Time: 16:17 cp 09/05 15:23 Order name: Urine Dipstick-Ancillary (obtain specimen); Complete Time: 16:17 cp EC:25 Rate is 64 beats/min. Rhythm is regular. MS interval is normal. QRS interval is normal. cp QT interval is normal. T waves are Flattened in lead III. Interpreted by me. Reviewed by me. Administered Medications: 18:46 Drug: NS 0.9% 1000 ml Route: IV; Rate: 1 bolus; Site: right antecubital; rb1 19:45 Follow up: Response: No adverse reaction; IV Status: Completed infusion; IV Intake: ea 900ml Disposition: 09/06 07:10 Co-signature as Attending Physician, Bud So MD I agree with the assessment and kdr plan of care. 07:11 Co-signature as Attending Physician, Bud So MD I agree with the assessment and kdr plan of care. Disposition: 09/06/19 19:39 Discharged to Home. Impression: Other chest pain, Shortness of breath. - Condition is Stable. - Discharge Instructions: Nonspecific Chest Pain, Shortness of Breath, [id number]. - Medication Reconciliation Form, Thank You Letter, Antibiotic Education, Prescription Opioid Use form. - Follow up: Emergency Department; When: As needed; Reason: Worsening of condition. Follow up: Private Physician; When: 2 - 3 days; Reason: Recheck today's complaints, Continuance of care, Re-evaluation by your physician. Signatures: Dispatcher [employer] EDMS Julia Menon, TRANSFER DRIVER-C TRANSFER DRIVER-Bud Miranda MD MD kdr Page, Corey, PA PA cp Barber, Rebecca, RN RN rb1 Gabrielle Phoenix RN RN ea Acob, Cheryl RN DAWN ca1 Corrections: (The following items were deleted from the chart) 09/05 19:59 19:39 09/06/2019 19:39 Discharged to Home. Impression: Other chest pain; Shortness of ea breath. Condition is Stable. Forms are Medication Reconciliation Form, Thank You Letter, Antibiotic Education, Prescription Opioid Use. Follow up: Emergency Department; When: As needed; Reason: Worsening of condition. Follow up: Private Physician; When: 2 - 3 days; Reason: Recheck today's complaints, Continuance of care, Re-evaluation by your physician. kb
[2019-09-06 20:29] VITALS: TEMP 98.7
[2019-09-06 20:33] VITALS: BP 110/68; O2SAT 99
--- NOTE | 2019-09-07 11:23 | EKG ---
Test Date: 2019-09-06 Test Time: 16:13:35 Crusher Operator: JOSE MEASUREMENT RESULTS: Intervals: Rate: 64 SD: 148 QRSD: 80 QT: 388 QTc: 400 [place]: P: 15 SD: 148 QRS: 62 T: 29 INTERPRETIVE STATEMENTS: Normal sinus rhythm Normal ECG No previous ECG available for comparison Electronically Signed On 09-07-19 11:20:24 CDT by Regino Murray
== END 2019-09-06 19:59 | disposition home or self-care (01) ==
LOC: ER 14:23
DX: R07.89 Other chest pain (principal); I10 Essential (primary) hypertension
CPT/HCPCS: 93005; 85025; 80048; 36415; 83735; 81025; 85610; 85379; 80076; 81003; 84484; 83880; 71275; 71046; 96360; 99284; Q9967; J7030

== ENCOUNTER 2021-08-12 08:25 | Day surgery (SDC) | payer BC ==
[2021-08-12] MEDS ORDERED: NA CHLORIDE 0.9% 1,000 ML ONE (08:32)
[2021-08-12 08:46] LABS: Specific Gravity 1.025 (1.005-1.030)
[2021-08-12] MEDS ORDERED: MIDAZOLAM HCL 2 MG/2 ML INJ ONE (09:09)
[2021-08-12] MEDS ORDERED: NALOXONE 0.4 MG/ML VIAL ONE (09:10)
[2021-08-12] MEDS ORDERED: FENTANYL CITR 100 MCG/2 ML ONE (09:11)
[2021-08-12 09:27] VITALS: BMI 39.9
[2021-08-12] MEDS ORDERED: DIAZEPAM 5 MG TABLET ONE (09:51)
[2021-08-12 14:20] VITALS: BP 126/68
[2021-08-12 14:23] VITALS: TEMP 97.8; O2SAT 100
--- NOTE | 2021-08-12 15:11 | RAD REPORT ---
EXAM DESCRIPTION: CT - Renal Biopsy CT - 08/12/2021 10:40 am CLINICAL HISTORY: renal disease COMPARISON: Renal Biopsy\CT dated 03/01/2019 FINDINGS: Preoperative diagnosis: Lupus Post operative diagnosis: Same Conscious Sedation: Conscious sedation was provided using Versed and Fentanyl. A total of 30 minutes of face to face time noted. Patient was continuously monitored by nursing staff. Contrast used: NONE Estimated blood loss: less than 5 mL Specimens: 3 x 18 gauge core specimens right kidney The patient was placed prone on the table and the right flank area was prepped and draped in the usua l sterile fashion. 1% lidocaine was infiltrated into the subcutaneous tissues for local anesthesia. U nder computed tomographic guidance, a 17 gauge introducer was advanced into the lesion. Subsequently, a 18 gauge, 16 cm long, 20 mm throw core biopsy gun was advanced into the right kidney and 3 cores w ere obtained. Postprocedure imaging demonstrated no complications. Samples were given to pathology for analysis. Th e patient tolerated the procedure without immediate complication and transferred to the recovery room in stable condition. IMPRESSION: 1. Technically successful random core biopsy of the right kidney under CT guidance. 2. Conscious sedation was utilized. 3. No immediate complications. All CT scans are performed using dose optimization technique as appropriate and may include automated exposure control or mA/KV adjustment according to patient size.
== END 2021-08-12 13:45 | disposition home or self-care (01) ==
LOC: DS 08:25
PROVIDERS: ATTEND Internal Medicine
DX: N17.9 Acute kidney failure, unspecified (principal)
CPT/HCPCS: 81025; 88300; 50200; J2250; J3010; J7030; J2310

== ENCOUNTER 2022-12-12 15:48 | Emergency (ER) | payer BC ==
--- OUTSIDE RECORDS SUMMARY | 2022-12-12 15:51 | XMS REPORT | Continuity of Care Document ---
:1995 Author Organization [facility] t Address [address] [place] [address] Care Team Providers Name Role Phone PCP, PATIENT DOES NOT HAVE A Primary Care Physician Unavaila SAMSON Huitron Attending Clinician Unavailable SAMSON RIVERO Attending Clinician Unavailable Payers Payer Name Policy Type Policy Number Effective Date Expiration Date S eleuterio [facility] [id number] 2021 00:00:00 Problems Condition Condition Condition Status Onset Resolution Last Treating Co mments Source Name Details Category Date Date Treatment Clinician Date Vaginal Vaginal Disease Active Univers discharge discharge 6-14 ity of 00:00: [address] Disease Active Univers control control 6-14 [place] [facility] BMI BMI Disease Active Univers 37.0-37.9, 37.0-37.9, 6-14 it y of adult adult 00:00: [address] Systemic Systemic Disease Active Unive rs lupus lupus 6-14 [place] aisha, 00 Medical unspecifie unspecifie Br anch d SLE d SLE type, type, unspecifie unspecifie d organ d organ involvemen involvemen t status t status History of History of Disease Active U nivers rheumatoid rheumatoid 6-14 [place] [facility] 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 00:00: [place] disease disease 00 l Allergies, Adverse Reactions, Alerts Allergy Allergy Status Severity Reaction(s) Onset Inactive Treating Comm ents Source Name Type Date Date Clinician NO KNOWN Drug Active Univers ALLERGIE Class ity of S [facility] Social History Social Habit Start Date Stop Date Quantity Comments Source History SDOH University o f Alcohol Std Drinks [place] [facility] History SDOH University o f Alcohol [facility]inge [place] [facility] History SDSD University o f Alcohol Comment [place] [facility] Gender identity [facility] Sexual orientation [facility] Tobacco use and 2021-11-24 2021-11-24 Never used Universit y of exposure 00:00:00 00:00:00 [facility] Alcohol intake 2021-11-24 2021-11-24 Lifetime University of 00:00:00 00:00:00 non-drinker [facility] Branch History SDOH 2021-11-24 2021-11-24 1 University o f Alcohol Frequency 00:00:00 00:00:00 [facility] edical Branch History of Social 2019-03-12 2019-03-[address] function 00:00:00 00:00:00 Hospital Sex Assigned At [birth year] ABDOULAYE [place] 00:00:00 [facility]:00:00 [facility] Smoking Status Start Date Stop Date Source Tobacco smoking consumption [facility] unknown Never smoker [facility] Medications Ordered Filled Start Stop Current Ordering Indication Dosage Frequency Signature Comments Components Source Medication Medication Date Date Medication? Clinician (SIG) Name Name metroNIDAZO 2021- No [id number] 500mg Take 1 Univers LE 500 mg 6-17 06-25 tablet by ity of tablet 00:00: 04:59 mouth [place] 00 :00 every 12 Medical (twelve) Branch hours for 7 days. metroNIDAZO 2021- No [id number] 500mg Take 1 Univers LE 500 mg 6-17 06-25 tablet by ity of tablet 00:00: 04:59 mouth [place] 00 :00 every 12 Medical (twelve) Branch hours for 7 days. fluconazole Yes [id number] 200mg Take 1 Univers 200 mg 6-14 tablet by ity of tablet 00:00: mouth [place] 00 daily. Medical Branch fluconazole Yes [id number] 200mg Take 1 Univers 200 mg 6-14 tablet by ity of tablet 00:00: mouth [place] 00 daily. Medical Branch fluconazole Yes [id number] 200mg Take 1 Univers 200 mg 6-14 tablet by ity of tablet 00:00: mouth [place] 00 daily. Medical Branch losartan Yes Univers 100 mg 6-06 ity of tablet 00:00: [place] 00 Medical [facility] losartan Yes Univers 100 mg 6-06 ity of tablet 00:00: [place] 00 Medical [facility] losartan Yes Univers 100 mg 6-06 ity of tablet 00:00: [place] 00 Medical [facility] escitalopra Yes 10mg Take 10 mg Univers m oxalate 5-17 by mouth ity of 10 mg 00:00: daily with [place] tablet 00 breakfast. Medical Branch escitalopra Yes 10mg Take 10 mg Univers m oxalate 5-17 by mouth ity of 10 mg 00:00: daily with [place] tablet 00 breakfast. Medical Branch escitalopra Yes 10mg Take 10 mg Univers m oxalate 5-17 by mouth ity of 10 mg 00:00: daily with [place] tablet 00 breakfast. Medical Branch acetaminoph Yes 500mg Q6H Take 500 M ethodi en 9-[address] (TYLENOL) 17:22: mouth [facility] 500 MG 28 every 6 l tablet (six) hours as needed for mild pain. Vital Signs Vital Name Observation Time Observation Value Comments Source Systolic blood 2021-11-24 14:02:00 113 mm[Hg] Univer sity of pressure [facility] Diastolic blood 2021-11-24 14:02:00 72 mm[Hg] [facility] rate 2021-11-24 14:02:00 80 /min [facility] Body temperature 2021-11-24 14:02:00 36.72 [facility] Kell [facility] height 2021-11-24 14:02:00 167.6 cm [facility] Body weight 2021-11-24 14:02:00 105.325 kg [facility] BMI 2021-11-24 14:02:00 37.48 kg/m2 [facility] Procedures Procedure Date / Time Performed Performing Clinician Sour e POCT TEST 2021-11-24 00:00:00 Samson Rivero [facility] Plan of Care Planned Activity Planned Date Details Comments Source Future Scheduled 2022-11-28 Screening for [facility] Test 02:59:44 malignant neoplasm of cervix (procedure) [code = 765336597] Future Scheduled 2022-11-28 INFLUENZA VACCINE [facility] Test 02:59:44 [code = INFLUENZA VACCINE] Future Scheduled 2022-11-28 COVID-[address] [facility] Test 02:59:44 (#1) [code = COVID-19 VACCINE (#1)] Encounters Start End Encounter Admission Attending Care Care Encounter Source Date/Time Date/Time Type Type Clinicians Facility Department ID 2022-02-16 2022-02-16 Outpatient R SAMSON RIVERO [facility] B [id number] Univers 13:00:00 13:00:00 SAMSON RIVERO [facility] 2021-12-11 2021-12-11 Outpatient R SAMSON RIVERO [facility] B [id number] Univers 08:00:00 08:00:00 SAMSON RIVERO [facility] 2021-11-30 2021-11-30 Outpatient R SAMSON RIVERO [facility] B [id number] Univers 09:30:00 09:30:00 SAMSON RIVERO [facility] 2021-11-30 2021-11-30 Telephone Josefa [facility] [id number] Univers 00:00:00 00:00:00 Samson ALVAREZ [id number] it y of WOMEN'S [id number] [facility] [id number] [place] [address] Branch 2021-11-27 2021-11-27 Case Josefa [facility] [id number] Univers 00:00:00 00:00:00 Management Samson ALVAREZ [id number] [id number] [facility] [id number] [place] [address] Branch 2021-11-24 2021-11-24 Office Josefa [facility] [id number] Univers 08:30:00 09:32:48 Visit Samson ALVAREZ [id number] david of WOMEN'S [id number] [facility] [id number] [place] [address] Branch 2021-11-24 2021-11-24 Outpatient R JOSEFA SAMSON [facility] B [id number] [facility] 08:30:00 09:32:48 SAMSON RIVERO [facility] 2021-11-24 2021-11-24 Outpatient R SAMSON RIVERO [facility] B [id number] [facility] 08:30:00 09:32:48 SAMSON RIVERO [facility] Results Test Description Test Time Test Comments Results Result Comments Source POCT TEST 2021-11-24 14:18:00 Test Item Value Reference Range Interpretation Comme nts POCT PREG (test code = 1605) Negative On board controls acceptable with C Line (test code = 3574) Yes POCT PREG LOT # (test code = 3575) POCT PREG TEST DATE (test code = 3576) [facility]
[2022-12-12 16:22] LABS: Specific Gravity 1.026 (1.005-1.030)
[2022-12-12 16:35] LABS: Specific Gravity 1.026 (1.005-1.030); Urine Bacteria <20 /HPF (<20); Urine Bilirubin NEGATIVE (Negative); Urine Blood 2+ (Negative); Urine Clarity Extremely Turbid (Clear); Urine Color Light-Yellow (Yellow); Urine Glucose NEGATIVE (Negative); Urine Mucus Slight /HPF (None Seen); Urine Protein 3+ (Negative); Urine Urobilinogen Normal (Normal); Urine pH 5.5 (5.0-7.0)
[2022-12-12] MEDS ORDERED: CEFTRIAXONE 1000 MG/VIAL ONE (16:53)
[2022-12-12] MEDS ORDERED: LIDOCAINE 1% MPF 2 ML AMPULE ONE (16:53)
[2022-12-12] MEDS ORDERED: DIAZEPAM 5 MG TABLET ONE (16:53)
[2022-12-12] MEDS ORDERED: KETOROLAC 30 MG/ML INJ ONE (16:53)
--- NOTE | 2022-12-12 18:06 | RAD REPORT ---
EXAM DESCRIPTION: RAD - Lumbar Spine 3 Views - 12/12/2022 5:51 pm CLINICAL HISTORY: Back pain and radiculopathy FINDINGS: No fracture or dislocation is seen. No bone or joint abnormality noted
--- NOTE | 2022-12-12 18:13 | ER ---
Nurse's Notes [facility] Name: Nazia Tierney Age: 27 yrs Sex: Female : 1995 Arrival Date: 12/12/2022 Time: 15:48 Bed 15 Private MD: Diagnosis: Radiculopathy, lumbar region;UTI/ Urinary tract infection, site not specified Presentation: 12/12 15:55 Chief complaint: Patient states: having sciatic pain x 2 months, progressively getting ko1 worse. Has been taking tylenol and its not doing anything. Coronavirus screen: At this time, the client does not indicate any symptoms associated with coronavirus-19. Ebola Screen: No symptoms or risks identified at this time. Initial Sepsis Screen: Does the patient meet any 2 criteria? No. Patient's initial sepsis screen is negative. Does the patient have a suspected source of infection? No. Patient's initial sepsis screen is negative. Risk Assessment: Do you want to hurt yourself or someone else? Patient reports no desire to harm self or others. Onset of symptoms is unknown. 15:55 Method Of Arrival: Ambulatory ko1 15:55 Acuity: ELDA 3 ko1 Triage Assessment: 15:57 General: Appears in no apparent distress. Behavior is calm, cooperative, appropriate ko1 for age. Pain: Complains of pain in lower back and both legs, was mainly in left. Musculoskeletal: Circulation, motion, and sensation intact. Capillary refill < 3 seconds. 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 - Social history:: Smoking status: Patient denies any tobacco usage or history of. Screenin:07 [facility] ED Fall Risk Assessment (Adult) History of falling in the last 3 months, mb9 including since admission No falls in past 3 months (0 pts) Confusion or Disorientation No (0 pts) Intoxicated or Sedated No (0 pts) Impaired Gait No (0 pts) Mobility Assist Device Used No (0 pt) Altered Elimination No (0 pt) Score/Fall Risk Level 0 - 2 = Low Risk Oriented to surroundings, Maintained a safe environment, Educated pt \T\ family on fall prevention, incl call for assistance when getting out of bed. Abuse screen: Denies threats or abuse. Nutritional screening: No deficits noted. Tuberculosis screening: No symptoms or risk factors identified. Assessment: 16:08 General: Appears uncomfortable, Behavior is cooperative. Pain: Complains of pain in mb9 back. Neuro: Tam Agitation-Sedation Scale (RASS): 0 - Alert and Calm Level of Consciousness is awake, alert, obeys commands, Oriented to person, place, time, situation, Appropriate for age. Cardiovascular: Patient's skin is warm and dry. Respiratory: Airway is patent Respiratory effort is even, unlabored, Respiratory pattern is regular, symmetrical. : Denies burning with urination, pain. Derm: Skin is pink, warm \T\ dry. Musculoskeletal: Range of motion: intact in all extremities. Vital Signs: 15:55 BP 155 / 108; Pulse 95; Resp 18; Temp 98.2; Pulse Ox 100% ; Weight 113.4 kg; Height 5 ko1 ft. 5 in. ; 17:37 BP 133 / 76; Pulse 74; Resp 16; Pulse Ox 98% on R/A; mb9 15:55 Body Mass Index 41.60 (113.40 kg, 165.1 cm) ko1 ED Course: 15:51 Patient arrived in ED. mr 15:55 Nydia Rogers, RESTORATIVE ART EMBALMER-C [facility]. snw 15:55 Bud So MD is Attending Physician. snw 15:56 Triage completed. ko1 15:57 Arm band placed on left wrist. Patient placed in an exam room, on a stretcher, on pulse ko1 oximetry, Patient notified of wait time. 16:04 Sierra Ospina, DAWN is Primary Nurse. mb9 16:07 Bed in low position. Call light in reach. Side rails up X 1. Client placed on mb9 continuous cardiac and pulse oximetry monitoring. NIBP monitoring applied. 16:07 No provider procedures requiring assistance completed. mb9 16:17 PREGU Sent. mb9 16:17 Urine W/Microscopic (UAM) Sent. mb9 16:39 Urine Culture Sent. mb9 17:52 Lumbar Spine (3 Views) XRAY In Process Unspecified. EDMS 18:43 Patient did not have IV access during this emergency room visit. mb9 Administered Medications: 16:52 Drug: Ketorolac IM 30 mg Route: IM; Site: right deltoid; mb9 17:37 Follow up: Response: No adverse reaction mb9 16:52 Drug: Diazepam PO 10 mg Route: PO; mb9 17:37 Follow up: Response: No adverse reaction mb9 16:53 Drug: Rocephin (cefTRIAXone) IM 1 grams Route: IM; Site: right gluteus; mb9 17:37 Follow up: Response: No adverse reaction mb9 18:43 Drug: Neurontin PO 300 mg Route: PO; mb9 Medication: 16:07 VIS not applicable for this client. mb9 Outcome: 18:12 Discharge ordered by MD. hicks 18:43 Discharged to home ambulatory. mb9 18:43 Condition: stable 18:43 Discharge instructions given to patient, Instructed on discharge instructions, follow up and referral plans. Demonstrated understanding of instructions, follow-up care, medications, Prescriptions given X 2. 18:45 Patient left the ED. mb9 Signatures: Dispatcher [employer] EDMD Nydia Rogers, RESTORATIVE ART EMBALMER-C RESTORATIVE ART EMBALMER-Thomasw Sierra Rios Kathy, RN RN koSierra Porter, RN RN mb9
--- NOTE | 2022-12-12 18:13 | EDPHYS ---
Physician Documentation [facility] Name: Nazia Tierney Age: 27 yrs Sex: Female : 1995 Arrival Date: 12/12/2022 Time: 15:48 Bed 15 Private MD: ED Physician Bud So HPI: 12/12 16:21 This 27 yrs old Female presents to ER via Ambulatory with complaints of Back snw Pain. 16:21 The patient presents with pain that is chronic, with no known mechanism of injury. The snw symptoms are located in the low back. Onset: The symptoms/episode began/occurred gradually, 2 month(s) ago, and became worse 3 day(s) ago, and became persistent. The pain radiates to the left gluteus luis. Associated signs and symptoms: Pertinent positives: none. The patient has experienced similar episodes in the past. has been seeing Chiropractor. 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 - Social history:: Smoking status: Patient denies any tobacco usage or history of. ROS: 16:21 Constitutional: Negative for fever, chills, and weight loss, Eyes: Negative for injury, snw pain, redness, and discharge, ENT: Negative for injury, pain, and discharge, Neck: Negative for injury, pain, and swelling, Cardiovascular: Negative for chest pain, palpitations, and edema, Respiratory: Negative for shortness of breath, cough, wheezing, and pleuritic chest pain, Abdomen/GI: Negative for abdominal pain, nausea, vomiting, diarrhea, and constipation, : Negative for injury, bleeding, discharge, and swelling, MS/Extremity: Negative for injury and deformity, Skin: Negative for injury, rash, and discoloration, Neuro: Negative for headache, weakness, numbness, tingling, and seizure, Psych: Negative for depression, anxiety, suicide ideation, homicidal ideation, and hallucinations. 16:21 Back: Positive for radiated pain, of the left low back. Exam: 16:20 Constitutional: This is a well developed, well nourished patient who is awake, alert, snw and in no acute distress. Head/Face: Normocephalic, atraumatic. Eyes: Pupils equal round and reactive to light, extra-ocular motions intact. Lids and lashes normal. Conjunctiva and sclera are non-icteric and not injected. Cornea within normal limits. Periorbital areas with no swelling, redness, or edema. ENT: Nares patent. No nasal discharge, no septal abnormalities noted. Tympanic membranes are normal and external auditory canals are clear. Oropharynx with no redness, swelling, or masses, exudates, or evidence of obstruction, uvula midline. Mucous membranes moist. Neck: Trachea midline, no thyromegaly or masses palpated, and no cervical lymphadenopathy. Supple, full range of motion without nuchal rigidity, or vertebral point tenderness. No Meningismus. Chest/axilla: Normal chest wall appearance and motion. Nontender with no deformity. No lesions are appreciated. Cardiovascular: Regular rate and rhythm with a normal S1 and S2. No gallops, murmurs, or rubs. Normal PMI, no JVD. No pulse deficits. Respiratory: Lungs have equal breath sounds bilaterally, clear to auscultation and percussion. No rales, rhonchi or wheezes noted. No increased work of breathing, no retractions or nasal flaring. Abdomen/GI: Soft, non-tender, with normal bowel sounds. No distension or tympany. No guarding or rebound. No evidence of tenderness throughout. Back: No spinal tenderness. No costovertebral tenderness. Full range of motion. Skin: Warm, dry with normal turgor. Normal color with no rashes, no lesions, and no evidence of cellulitis. Neuro: Awake and alert, GCS 15, oriented to person, place, time, and situation. Cranial nerves II-XII grossly intact. Motor strength 5/5 in all extremities. Sensory grossly intact. Cerebellar exam normal. Normal gait. Psych: Awake, alert, with orientation to person, place and time. Behavior, mood, and affect are within normal limits. 16:20 Musculoskeletal/extremity: ROM: limited active range of motion due to pain, limited passive range of motion due to pain, Sensation intact. Cauda equina s/s absent. 16:20 Neuro: Orientation: is normal, Cranial nerves: grossly normal, Gait: painful. seizure activity, is not displayed by the patient. Vital Signs: 15:55 BP 155 / 108; Pulse 95; Resp 18; Temp 98.2; Pulse Ox 100% ; Weight 113.4 kg; Height 5 ko1 ft. 5 in. ; 17:37 BP 133 / 76; Pulse 74; Resp 16; Pulse Ox 98% on R/A; mb9 15:55 Body Mass Index 41.60 (113.40 kg, 165.1 cm) ko1 MDM: 16:09 Patient medically screened. snw 16:29 Differential diagnosis: arthritis, chronic back pain, Fracture Obesity Scoliosis lumbar snw radiculopathy. Data reviewed: vital signs, nurses notes. Care significantly affected by the following chronic conditions: Lupus, RA, gastritis. Pt on Hydroxychloroquine. Counseling: I had a detailed discussion with the patient and/or guardian regarding: the historical points, exam findings, and any diagnostic results supporting the discharge/admit diagnosis, the need for outpatient follow up, for definitive care, cannot get MRI from ED. Special discussion: Based on the history and exam findings, there is no indication for further emergent testing or inpatient evaluation. I discussed with the patient/guardian the need to see the primary care provider for further evaluation of the symptoms. 12/12 15:59 Order name: Urine W/Microscopic (UAM); Complete Time: 16:39 snw 12/12 15:59 Order name: PREGU; Complete Time: 16:39 snw 12/12 16:38 Order name: Urine Culture EDPR 12/12 16:42 Order name: Lumbar Spine (3 Views) XRAY; Complete Time: 18:11 snw Administered Medications: 16:52 Drug: Ketorolac IM 30 mg Route: IM; Site: right deltoid; mb9 17:37 Follow up: Response: No adverse reaction mb9 16:52 Drug: Diazepam PO 10 mg Route: PO; mb9 17:37 Follow up: Response: No adverse reaction mb9 16:53 Drug: Rocephin (cefTRIAXone) IM 1 grams Route: IM; Site: right gluteus; mb9 17:37 Follow up: Response: No adverse reaction mb9 18:43 Drug: Neurontin PO 300 mg Route: PO; mb9 Disposition: 19:18 Co-signature as Attending Physician, Bud So MD I agree with the assessment and kdr plan of care. Disposition Summary: 12/12/22 18:12 Discharge Ordered Location: Home snw Condition: Stable snw Diagnosis - Radiculopathy, lumbar region snw - UTI/ Urinary tract infection, site not specified snw Followup: snw - With: Emergency Department - When: As needed - Reason: Worsening of condition Followup: snw - With: Private Physician - When: 2 - 3 days - Reason: Recheck today's complaints, Continuance of care, Re-evaluation by your physician Discharge Instructions: - Discharge Summary Sheet snw - Lumbosacral Radiculopathy snw - Urinary Tract Infection, Adult snw - Rehydration, Adult snw - Radicular Pain snw Forms: - Work release form snw - Medication Reconciliation Form snw - Thank You Letter snw - Antibiotic Education snw - Prescription Opioid Use snw - [email or web address] snw Prescriptions: - Augmentin 875-125 mg Oral Tablet - take 1 tablet by ORAL route every 12 hours for 10 days; 20 tablet; Refills: 0, snw Product Selection Permitted - Neurontin 300 mg Oral Capsule - take 1 capsule by ORAL route At bedtime; 20 capsule; Refills: 0, Product snw Selection Permitted Signatures: Dispatcher [employer] Bud Berkowitz MD MD kdr Waters, Shelly, AGRICULTURAL PURCHASING AGENT-C AGRICULTURAL PURCHASING AGENT-Csnw Laura Spencer RN RN ko1 Sierra Ospina RN RN mb9
[2022-12-12] MEDS ORDERED: GABAPENTIN 400 MG CAP ONE (18:48)
[2022-12-12 18:50] VITALS: TEMP 98.2
[2022-12-12 18:52] VITALS: BP 133/76; O2SAT 98
== END 2022-12-12 18:45 | disposition home or self-care (01) ==
LOC: ER 15:48
DX: N39.0 Urinary tract infection, site not specified (principal); M54.16 Radiculopathy, lumbar region; I10 Essential (primary) hypertension
CPT/HCPCS: 87088; 81001; 87086; 81025; 72100; 96372; 99284; J0696